=== PATIENT | male | born 1955 | race Caucasian/White ===

== ENCOUNTER 2016-07-06 12:25 | Emergency (ER) | payer BC, OTHER ==
--- NOTE | 2016-07-06 13:51 | ED ---
General Adult HPI - General Chief complaint: Arrhythmia/Palpitations Stated complaint: Irregular Heartbeat Time Seen by Provider: 07/06/16 13:15 Source: patient, RN notes reviewed Mode of arrival: wheelchair Limitations: no limitations - History of Present Illness Initial comments: Patient is a pleasant 60-year-old male presenting to the emergency Department with palpitations. Onset was around noon. Symptoms have been intermittent but overall improved. No history of similar symptoms previously. Patient feels like his heart is fluttering at times. Patient states there may be some minimal associated dyspnea. No pain. No nausea or diaphoresis. - Related Data Home Medications Medication Instructions Recorded Confirmed Clopidogrel [Plavix] 75 mg PO DAILY 06/16/15 07/06/16 Allopurinol [Zyloprim] 100 mg PO DAILY 07/28/15 07/06/16 Acetaminophen Tab [Tylenol Tab] 650 mg PO Q4H PRN 07/06/16 07/06/16 Aspirin 81 - 162 mg PO DAILY 07/06/16 07/06/16 Ezetimibe [Zetia] 10 mg PO HS 07/06/16 07/06/16 Famotidine [Pepcid] 20 mg PO DAILY PRN 07/06/16 07/06/16 Ferrous Sulfate [Feosol] 325 mg PO DAILY 07/06/16 07/06/16 Lisinopril [Zestril] 5 mg PO DAILY 07/06/16 07/06/16 valACYclovir [Valtrex] 500 mg PO BID 07/06/16 07/06/16 Previous Rx's Medication Instructions Recorded Nitroglycerin Sl Tabs [Nitrostat] 0.4 mg SUBLINGUAL Q5M PRN #25 tab 08/02/15 Metoprolol Tartrate [Lopressor] 25 mg PO BID #60 tab 01/20/16 Rosuvastatin Calcium [Crestor] 40 mg PO DAILY #30 tab 01/20/16 Allergies Allergy/AdvReac Type Severity Reaction Status Date / Time codeine Allergy makes Verified 07/06/16 13:35 headache worse egg yolk Allergy stomach Verified 07/06/16 13:35 ache atorvastatin calcium AdvReac Abdominal Verified 07/06/16 13:35 [From Lipitor] Pain PAIN MED (UNKNOWN) Allergy Unknown Uncoded 07/06/16 13:36 Review of Systems ROS Statement: Those systems with pertinent positive or pertinent negative responses have been documented in the HPI. ROS Other: All systems not noted in ROS Statement are negative. Constitutional: Denies: fever Eyes: Denies: eye pain ENT: Denies: ear pain Respiratory: Denies: cough Cardiovascular: Reports: palpitations. Denies: chest pain Endocrine: Denies: fatigue Gastrointestinal: Denies: abdominal pain Genitourinary: Denies: dysuria Musculoskeletal: Denies: back pain Skin: Denies: rash Neurological: Denies: weakness Past Medical History Past Medical History: Asthma, Coronary Artery Disease (CAD), GERD/Reflux, Hyperlipidemia, Hypertension, Myocardial Infarction ([place]), Osteoarthritis (OA) Additional Past Medical History / Comment(s): inpt [facility] "coded" during bowel prep for colonoscopy 06/2015, anemia, hiatal hernia, occ irregular heartbeat, gout, "low sodium", Last Myocardial Infarction Date:: 2015 History of Any Multi-Drug Resistant Organisms: None Reported Past Surgical History: Adenoidectomy, Appendectomy, Cholecystectomy, Coronary Bypass/CABG, Heart Catheterization With Stent, Tonsillectomy Additional Past Surgical History / Comment(s): total 4 stents, CABG 1994, surgery on rt eye(hit in eyeball with frisbe), Endo capsule, EGD, Colonoscopy Past Anesthesia/Blood Transfusion Reactions: Previous Problems w/ Anesthesia, Blood Transfusion Reaction, Motion Sickness Additional Past Anesthesia/Blood Transfusion Reaction / Comment(s): Hallucinations with last anesthesia, "felt funny' when getting last transfusion - could not be more specific Date of Last Stent Placement:: 2015 Past Psychological History: Anxiety Additional Psychological History / Comment(s): pt is independant,lives alone. works as cashier general/deputy city clerk at [employer]. Smoking Status: Former smoker Past Alcohol Use History: Rare Additional Past Alcohol Use History / Comment(s): QUIT 1997 HAD BEEN UP TO 2.5 PPD, started 1972-smoked for 25 yrs Past Drug Use History: None Reported - Past Family History Mother Family Medical History: Coronary Artery Disease (CAD), Hypertension Father Family Medical History: CVA/TIA Brother(s) Family Medical History: No Reported History Sister(s) Family Medical History: Cancer, Thyroid Disorder Additional Family Medical History / Comment(s): THYROID CANCER Son(s) Family Medical History: Cancer Daughter(s) Family Medical History: No Reported History General Exam Limitations: no limitations General appearance: alert, in no apparent distress Head exam: Present: atraumatic Eye exam: Present: normal appearance, PERRL ENT exam: Present: normal oropharynx Neck exam: Present: normal inspection Respiratory exam: Present: normal lung sounds bilaterally. Absent: chest wall tenderness Cardiovascular Exam: Present: regular rate, normal rhythm Expanded Peripheral pulses: 2+: Radial (R), Radial (L), Posterior Tibialis (R), Posterior Tibialis (L) GI/Abdominal exam: Present: soft. Absent: tenderness Extremities exam: Present: normal inspection Neurological exam: Present: alert Psychiatric exam: Present: normal affect, normal mood Skin exam: Absent: rash Course Vital Signs 07/06/16 07/06/16 07/06/16 12:28 12:38 15:00 Temperature 97.5 F L Pulse Rate 48 L 81 Pulse Rate [ 80 Clinical Review Specialist ] Respiratory 18 15 Rate Blood Pressure 190/84 150/84 O2 Sat by Pulse 99 96 Oximetry - Reevaluation(s) Reevaluation #1: 07/06/16 13:49 While auscultating heart sounds and looking at the monitor PVC was noted twice. At both times patient states this was associated with the symptoms. EKG Findings - EKG Comments: EKG Findings:: Normal sinus rhythm 78. Normal intervals. Left axis. Inferior Q waves. No acute ST change. Medical Decision Making - Medical Decision Making Patient reexamined and near symptom-free. Patient updated on results and need for follow-up. - Lab Data Result diagrams: 07/06/16 12:55 07/06/16 12:55 Lab Results 07/06/16 07/06/16 07/06/16 Range/Units 12:55 12:55 12:55 WBC 8.7 (3.8-10.6) k/uL RBC 5.09 (4.30-5.90) m/uL Hgb 15.6 (13.0-17.5) gm/dL Hct 47.8 (39.0-53.0) % MCV 94.0 (80.0-100.0) fL MCH 30.6 (25.0-35.0) pg MCHC 32.5 (31.0-37.0) g/dL RDW 13.3 (11.5-15.5) % Plt Count 232 (150-450) k/uL Neutrophils % 75 % Lymphocytes % 16 % Monocytes % 5 % Eosinophils % 1 % Basophils % 0 % Neutrophils # 6.6 (1.3-7.7) k/uL Lymphocytes # 1.4 (1.0-4.8) k/uL Monocytes # 0.4 (0-1.0) k/uL Eosinophils # 0.1 (0-0.7) k/uL Basophils # 0.0 (0-0.2) k/uL PT (9.0-12.0) sec INR (<1.1) APTT (22.0-30.0) sec Sodium 141 (137-145) mmol/L Potassium 4.2 (3.5-5.1) mmol/L Chloride 106 (98-107) mmol/L Carbon Dioxide 20 L (22-30) mmol/L Anion Gap 15 mmol/L BUN 10 (9-20) mg/dL Creatinine 0.76 (0.66-1.25) mg/dL Est GFR (MDRD) Af Amer >60 (>60 ml/min/1.73 sqM) Est GFR (MDRD) Non-Af >60 (>60 ml/min/1.73 sqM) Glucose 92 (74-99) mg/dL Calcium 9.3 (8.4-10.2) mg/dL Magnesium 1.7 (1.6-2.3) mg/dL Total Bilirubin 1.0 (0.2-1.3) mg/dL AST 41 (17-59) U/L ALT 41 (21-72) U/L Alkaline Phosphatase 49 (38-126) U/L Total Creatine Kinase 87 (55-170) U/L CK-MB (CK-2) 2.4 (0.0-2.4) ng/mL CK-MB (CK-2) Rel Index 2.8 Troponin I 0.016 (0.000-0.034) ng/mL Total Protein 7.5 (6.3-8.2) g/dL Albumin 4.4 (3.5-5.0) g/dL TSH 1.600 (0.465-4.680) mIU/L Free T4 1.05 (0.78-2.19) ng/dL 07/06/16 Range/Units 12:55 WBC (3.8-10.6) k/uL RBC (4.30-5.90) m/uL Hgb (13.0-17.5) gm/dL Hct (39.0-53.0) % MCV (80.0-100.0) fL MCH (25.0-35.0) pg MCHC (31.0-37.0) g/dL RDW (11.5-15.5) % Plt Count (150-450) k/uL Neutrophils % % Lymphocytes % % Monocytes % % Eosinophils % % Basophils % % Neutrophils # (1.3-7.7) k/uL Lymphocytes # (1.0-4.8) k/uL Monocytes # (0-1.0) k/uL Eosinophils # (0-0.7) k/uL Basophils # (0-0.2) k/uL PT 13.6 H (9.0-12.0) sec INR 1.4 (<1.1) APTT 29.0 (22.0-30.0) sec Sodium (137-145) mmol/L Potassium (3.5-5.1) mmol/L Chloride (98-107) mmol/L Carbon Dioxide (22-30) mmol/L Anion Gap mmol/L BUN (9-20) mg/dL Creatinine (0.66-1.25) mg/dL Est GFR (MDRD) Af Amer (>60 ml/min/1.73 sqM) Est GFR (MDRD) Non-Af (>60 ml/min/1.73 sqM) Glucose (74-99) mg/dL Calcium (8.4-10.2) mg/dL Magnesium (1.6-2.3) mg/dL Total Bilirubin (0.2-1.3) mg/dL AST (17-59) U/L ALT (21-72) U/L Alkaline Phosphatase (38-126) U/L Total Creatine Kinase (55-170) U/L CK-MB (CK-2) (0.0-2.4) ng/mL CK-MB (CK-2) Rel Index Troponin I (0.000-0.034) ng/mL Total Protein (6.3-8.2) g/dL Albumin (3.5-5.0) g/dL TSH (0.465-4.680) mIU/L Free T4 (0.78-2.19) ng/dL - Radiology Data Radiology results: image reviewed (Chest x-ray shows no acute process) Disposition Clinical Impression: Ventricular premature beats Disposition: HOME SELF-CARE Condition: Stable Instructions: Palpitations (ED), Premature Ventricular Contractions (ED) Additional Instructions: Please follow-up with Dr. Carvalho in the beginning of the week. Return for increased heart rate, increased palpitations, chest pain or difficulty in breathing, worsening symptoms or other concerns. Referrals: Alex Borden Jr, DO [Primary Care Provider] - 1-2 days
[2016-07-06 14:05] LABS: Basophils % (A) 0 %; CH 31.2; CHCM 33.3; Eosinophils # (A) 0.1 k/uL (0-0.7); Eosinophils % (A) 1 %; HCT 47.8 % (39.0-53.0); HDW 2.63; HGB 15.6 gm/dL (13.0-17.5); Luc # (Auto) 0.17; Luc % (Auto) 2; Lymphocytes # (A) 1.4 k/uL (1.0-4.8); Lymphocytes % (A) 16 %; MCH 30.6 pg (25.0-35.0); MCHC 32.5 g/dL (31.0-37.0); Mean Platelet Volume 7.6; Monocytes # (A) 0.4 k/uL (0-1.0); Monocytes % (A) 5 %; Neutrophils # (A) 6.6 k/uL (1.3-7.7); Neutrophils % (A) 75 %; RBC 5.09 m/uL (4.30-5.90); RDW 13.3 % (11.5-15.5); WBC 8.7 k/uL (3.8-10.6); WBC (Perox) 8.71
--- NOTE | 2016-07-06 14:20 | XR ---
EXAMINATION TYPE: XR chest 2V DATE OF EXAM: 07/06/2016 2:07 PM COMPARISON: January 18, 2016 HISTORY: Shortness of breath TECHNIQUE: Frontal and lateral views of the chest are obtained. FINDINGS: Scattered senescent parenchymal changes noted. Hyperinflation compatible with COPD. No evidence for infiltrate. No evidence for atelectasis. Heart size is stable. Mediastinal structures are stable and grossly unremarkable. No evidence for hilar prominence. Degenerative changes dorsal spine. IMPRESSION: 1. No evidence for acute pulmonary disease.
[2016-07-06 14:26] LABS: INR 1.4 (<1.1); Prothrombin Time 13.6 sec (9.0-12.0)
[2016-07-06 14:28] LABS: ALT 41 U/L (21-72); AST 41 U/L (17-59); Alkaline Phosphatase 49 U/L (38-126); Anion Gap 15 mmol/L; Blood Urea Nitrogen 10 mg/dL (9-20); Calcium 9.3 mg/dL (8.4-10.2); Carbon Dioxide 20 mmol/L (22-30); Chloride 106 mmol/L (98-107); Glucose 92 mg/dL (74-99); Magnesium 1.7 mg/dL (1.6-2.3); Non-African American GFR(MDRD) >60 (>60 ml/min/1.73 sqM); Potassium 4.2 mmol/L (3.5-5.1); Sodium 141 mmol/L (137-145); Total Protein 7.5 g/dL (6.3-8.2)
[2016-07-06 14:42] LABS: Creatine Kinase MB 2.4 ng/mL (0.0-2.4); Troponin I 0.016 ng/mL (0.000-0.034)
[2016-07-06] MEDS ORDERED: ACETAMINOPHEN TAB 500 MG TAB PO STA (15:04)
[2016-07-06 15:53] VITALS: BP 162/87; PULSE 67; RESP 14; TEMP 98.3
== END 2016-07-06 16:08 | disposition home or self-care (01) ==
LOC: EC 12:25
DX: I49.3 Ventricular premature depolarization (principal); I25.10 Atherosclerotic heart disease of native coronary artery without angina pectoris; I10 Essential (primary) hypertension; I25.2 Old myocardial infarction; E78.5 Hyperlipidemia, unspecified; K21.9 Gastro-esophageal reflux disease without esophagitis; Z95.1 Presence of aortocoronary bypass graft; Z95.5 Presence of coronary angioplasty implant and graft; Z88.5 Allergy status to narcotic agent; Z88.8 Allergy status to other drugs, medicaments and biological substances; Z79.82 Long term (current) use of aspirin; Z79.02 Long term (current) use of antithrombotics/antiplatelets; Z79.899 Other long term (current) drug therapy; Z87.891 Personal history of nicotine dependence
CPT/HCPCS: 36415; 71020; 80053; 82550; 82553; 83735; 84439; 84443; 84481; 84484; 85025; 85610; 85730; 93005; 99285

== ENCOUNTER → 2016-07-20 | Outpatient (CLI) | payer BC ==
--- NOTE | 2016-07-21 08:01 | CT ---
EXAMINATION TYPE: CT abdomen pelvis wo con DATE OF EXAM: 07/20/2016 8:08 PM COMPARISON: NONE HISTORY: Pain and swelling near umbilicus. Previous umbilical hernia repair. CT DLP: 1014.00 mGycm FINDINGS: LUNG BASES: No evidence for nodule. No evidence for infiltrate. LIVER/GB: Cholecystectomy clips noted. No space-occupying hepatic lesion. PANCREAS: No pancreatic mass identified. No inflammatory process seen. SPLEEN: No evidence for splenomegaly. No intrasplenic lesions seen. ADRENALS: No adrenal nodules identified. No evidence for thickening. KIDNEYS: No evidence for renal mass. No nephrolithiasis. No hydronephrosis. BOWEL: Appendix has a normal appearance. No evidence of bowel obstruction. No inflammatory process. S igmoid diverticulosis without diverticulitis. Lymph nodes: No evidence for adenopathy greater than 1 cm. Abdominal aorta: Atheromatous changes seen. Mild intra-abdominal aortic aneurysm measuring 3.1 cm. Ec addy of the iliac arteries. Genital organs: No significant abnormality. Other: Fat-containing ventral hernia to the right of midline approximately 11.5 cm proximal to the um bilicus. Hernia measures 3.1 x 1.5 cm. IMPRESSION: 1. FAT-CONTAINING VENTRAL HERNIA. 2. SIGMOID DIVERTICULOSIS WITHOUT DIVERTICULITIS. 3. MILD INFRARENAL ABDOMINAL AORTIC ANEURYSM.
== END | disposition home or self-care (01) ==
LOC: RADCTMAIN 19:25
PROVIDERS: ATTEND Surgery
DX: K43.9 Ventral hernia without obstruction or gangrene (principal); K57.30 Diverticulosis of large intestine without perforation or abscess without bleeding; I71.4 Abdominal aortic aneurysm, without rupture
CPT/HCPCS: 74176

== ENCOUNTER → 2017-03-28 | Outpatient (CLI) | payer BC ==
[2017-03-28 11:57] LABS: CHCM 33.6; HCT 52.1 % (39.0-53.0); HDW 2.69; HGB 16.6 gm/dL (13.0-17.5); MCH 31.5 pg (25.0-35.0); MCHC 31.9 g/dL (31.0-37.0); MCV 98.7 fL (80.0-100.0); Mean Platelet Volume 8.1; RBC 5.28 m/uL (4.30-5.90); RDW 13.9 % (11.5-15.5); WBC 10.5 k/uL (3.8-10.6)
== END | disposition home or self-care (01) ==
LOC: LABPAT 11:02
PROVIDERS: ATTEND Surgery
DX: Z01.812 Encounter for preprocedural laboratory examination (principal)
CPT/HCPCS: 36415; 85027; 86850; 86900; 86901

== ENCOUNTER 2017-03-30 20:39 | Inpatient (IN) | payer BC ==
[~2017-03-30 20:39] MED LIST: LACTATED RINGERS 1,000 ML IV ONE; SODIUM CHLORIDE 0.9% 500 ML IV ONE
[2017-03-30] MEDS ORDERED: ONDANSETRON 4 MG/2 ML VIAL IVP STA (21:47)
[2017-03-30] MEDS ORDERED: HYDROmorphone 1 MG/ML 1 ML SYRINGE IVP STA (21:47)
[2017-03-30] MEDS ORDERED: SODIUM CHLORIDE 0.9% 500 ML IV STA (21:47)
[2017-03-30] MEDS ORDERED: RX INFO: IV CONTRAST WAS GIVEN 1 EACH MISC MISCELLANE PRN (21:57)
--- NOTE | 2017-03-30 21:57 | ED ---
General Adult HPI - General Chief complaint: Abdominal Pain Stated complaint: Vomiting/Hernia Time Seen by Provider: 03/30/17 21:00 Source: patient, RN notes reviewed Mode of arrival: ambulatory Limitations: no limitations - History of Present Illness Initial comments: This is a 61-year-old male presents emergency Department with a incisional hernia patient is supposed to have surgical repair on Saturday. Patient states Saturday he started having significant pain and was dry heaving all day however he felt fine Saturday again he was having significant pain and again today. Patient states he is too uncomfortable to remain at home so he came in to get some pain medication. Patient denies any vomiting right now but is nauseated. Patient denies any fever chills. Patient denies any back pain. Patient denies any dysuria hematuria urinary frequency. Patient denies any chest pain difficulty breathing or shortness of breath - Related Data Home Medications Medication Instructions Recorded Confirmed Allopurinol [Zyloprim] 100 mg PO DAILY 07/28/15 03/27/17 Ezetimibe [Zetia] 10 mg PO HS 07/06/16 03/27/17 Famotidine [Pepcid] 20 mg PO BID 07/06/16 03/27/17 Ferrous Sulfate [Feosol] 325 mg PO BID 07/06/16 03/27/17 Lisinopril [Zestril] 10 mg PO DAILY 07/06/16 03/27/17 Aspirin [Adult Low Dose Aspirin EC] 81 mg PO DAILY 03/27/17 03/27/17 Loratadine [Claritin] 10 mg PO DAILY PRN 03/27/17 03/27/17 Metoprolol Tartrate [Lopressor] 12.5 mg PO BID 03/27/17 03/27/17 Sennosides [Senna] 8.6 mg PO DAILY 03/27/17 03/27/17 Previous Rx's Medication Instructions Recorded Nitroglycerin Sl Tabs [Nitrostat] 0.4 mg SUBLINGUAL Q5M PRN #25 tab 08/02/15 Rosuvastatin Calcium [Crestor] 40 mg PO DAILY #30 tab 01/20/16 Allergies Allergy/AdvReac Type Severity Reaction Status Date / Time codeine Allergy makes Verified 03/30/17 20:54 headache worse egg yolk Allergy stomach Verified 03/30/17 20:54 ache atorvastatin calcium AdvReac Abdominal Verified 03/30/17 20:54 [From Lipitor] Pain Review of Systems ROS Statement: Those systems with pertinent positive or pertinent negative responses have been documented in the HPI. ROS Other: All systems not noted in ROS Statement are negative. Past Medical History Past Medical History: Coronary Artery Disease (CAD), GERD/Reflux, Hyperlipidemia , Hypertension, Myocardial Infarction ([place]), Osteoarthritis (OA) Additional Past Medical History / Comment(s): States "coded" during bowel prep for colonoscopy 06/2015, anemia, hiatal hernia, occ irregular heartbeat, gout, hx of low sodium., low iron (received iron transfusions), genital herpes., incisional hernia- states occasional vomiting. Last Myocardial Infarction Date:: 2015 History of Any Multi-Drug Resistant Organisms: None Reported Past Surgical History: Adenoidectomy, Appendectomy, Cholecystectomy, Coronary Bypass/CABG, Heart Catheterization With Stent, Tonsillectomy Additional Past Surgical History / Comment(s): total 4 stents, CABG 1994, surgery on rt eye(hit in eyeball with frisbe), Endo capsule, EGD, Colonoscopy Past Anesthesia/Blood Transfusion Reactions: Previous Problems w/ Anesthesia, Blood Transfusion Reaction, Motion Sickness Additional Past Anesthesia/Blood Transfusion Reaction / Comment(s): Hallucinations with last anesthesia, "felt funny' when getting last transfusion. Date of Last Stent Placement:: 2015 Past Psychological History: No Psychological Hx Reported Smoking Status: Former smoker Past Alcohol Use History: Rare Past Drug Use History: None Reported - Past Family History Mother Family Medical History: Coronary Artery Disease (CAD), Hypertension Father Family Medical History: CVA/TIA Brother(s) Family Medical History: No Reported History Sister(s) Family Medical History: Cancer, Thyroid Disorder Additional Family Medical History / Comment(s): THYROID CANCER Son(s) Family Medical History: Cancer Daughter(s) Family Medical History: No Reported History General Exam - General Exam Comments Initial Comments: GENERAL: Patient is well-developed and well-nourished. Patient is nontoxic and well- hydrated and is in distress. ENT: Neck is soft and supple. No significant lymphadenopathy is noted. Oropharynx is clear. Moist mucous membranes. Neck has full range of motion without eliciting any pain. EYES: The sclera were anicteric and conjunctiva were pink and moist. Extraocular movements were intact and pupils were equal round and reactive to light. Eyelids were unremarkable. PULMONARY: Unlabored respirations. Good breath sounds bilaterally. No audible rales rhonchi or wheezing was noted. CARDIOVASCULAR: There is a regular rate and rhythm without any murmurs gallops or rubs. ABDOMEN: Patient is a mass which appears to be a incisional hernia on the left side of the incision it is extremely tender to touch and it is nonreducible at this point SKIN: Skin is clear with no lesions or rashes and otherwise unremarkable. NEUROLOGIC: Patient is alert and oriented x3. Cranial nerves II through XII are grossly intact. Motor and sensory are also intact. Normal speech, volume and content. Symmetrical smile. MUSCULOSKELETAL: Normal extremities with adequate strength and full range of motion. No lower extremity swelling or edema. No calf tenderness. LYMPHATICS: No significant lymphadenopathy is noted PSYCHIATRIC: Normal psychiatric evaluation. Limitations: no limitations Course Vital Signs 03/30/17 03/30/17 20:50 22:51 Temperature 99.2 F Pulse Rate 68 63 Respiratory 16 18 Rate Blood Pressure 137/97 140/66 O2 Sat by Pulse 98 95 Oximetry Medical Decision Making - Medical Decision Making I spoke with Dr. Kincaid and she wanted to do the surgery this evening because there is no OR rooms in the morning. Dr. Kincaid took the patient to the OR this evening - Lab Data Result diagrams: 03/30/17 22:11 03/30/17 22:11 Lab Results 03/30/17 03/30/17 03/30/17 Range/Units 22:11 22:11 22:13 WBC 11.1 H (3.8-10.6) k/uL RBC 5.35 (4.30-5.90) m/uL Hgb 16.9 (13.0-17.5) gm/dL Hct 51.2 (39.0-53.0) % MCV 95.8 (80.0-100.0) fL MCH 31.6 (25.0-35.0) pg MCHC 33.0 (31.0-37.0) g/dL RDW 12.7 (11.5-15.5) % Plt Count 232 (150-450) k/uL Neutrophils % 79 % Lymphocytes % 12 % Monocytes % 7 % Eosinophils % 1 % Basophils % 0 % Neutrophils # 8.7 H (1.3-7.7) k/uL Lymphocytes # 1.4 (1.0-4.8) k/uL Monocytes # 0.7 (0-1.0) k/uL Eosinophils # 0.1 (0-0.7) k/uL Basophils # 0.0 (0-0.2) k/uL Sodium 140 (137-145) mmol/L Potassium 4.3 (3.5-5.1) mmol/L Chloride 106 (98-107) mmol/L Carbon Dioxide 24 (22-30) mmol/L Anion Gap 10 mmol/L BUN 10 (9-20) mg/dL Creatinine 0.80 (0.66-1.25) mg/dL Est GFR (MDRD) Af Amer >60 (>60 ml/min/1.73 sqM) Est GFR (MDRD) Non-Af >60 (>60 ml/min/1.73 sqM) Glucose 116 H (74-99) mg/dL Plasma Lactic Acid Geo 1.1 (0.7-2.0) mmol/L Calcium 9.4 (8.4-10.2) mg/dL Total Bilirubin 1.1 (0.2-1.3) mg/dL AST 32 (17-59) U/L ALT 49 (21-72) U/L Alkaline Phosphatase 62 (38-126) U/L Total Protein 6.8 (6.3-8.2) g/dL Albumin 4.0 (3.5-5.0) g/dL Amylase 32 (30-110) U/L Lipase 67 (23-300) U/L Urine Color Urine Appearance (Clear) Urine pH (5.0-8.0) Ur Specific [place] (1.001-1.035) Urine Protein (Negative) Urine Glucose (UA) (Negative) Urine Ketones (Negative) Urine Blood (Negative) Urine Nitrite (Negative) Urine Bilirubin (Negative) Urine Urobilinogen (<2.0) mg/dL Ur Leukocyte Esterase (Negative) 03/30/17 Range/Units 22:49 WBC (3.8-10.6) k/uL RBC (4.30-5.90) m/uL Hgb (13.0-17.5) gm/dL Hct (39.0-53.0) % MCV (80.0-100.0) fL MCH (25.0-35.0) pg MCHC (31.0-37.0) g/dL RDW (11.5-15.5) % Plt Count (150-450) k/uL Neutrophils % % Lymphocytes % % Monocytes % % Eosinophils % % Basophils % % Neutrophils # (1.3-7.7) k/uL Lymphocytes # (1.0-4.8) k/uL Monocytes # (0-1.0) k/uL Eosinophils # (0-0.7) k/uL Basophils # (0-0.2) k/uL Sodium (137-145) mmol/L Potassium (3.5-5.1) mmol/L Chloride (98-107) mmol/L Carbon Dioxide (22-30) mmol/L Anion Gap mmol/L BUN (9-20) mg/dL Creatinine (0.66-1.25) mg/dL Est GFR (MDRD) Af Amer (>60 ml/min/1.73 sqM) Est GFR (MDRD) Non-Af (>60 ml/min/1.73 sqM) Glucose (74-99) mg/dL Plasma Lactic Acid Geo (0.7-2.0) mmol/L Calcium (8.4-10.2) mg/dL Total Bilirubin (0.2-1.3) mg/dL AST (17-59) U/L ALT (21-72) U/L Alkaline Phosphatase (38-126) U/L Total Protein (6.3-8.2) g/dL Albumin (3.5-5.0) g/dL Amylase (30-110) U/L Lipase (23-300) U/L Urine Color Yellow Urine Appearance Clear (Clear) Urine pH 6.5 (5.0-8.0) Ur Specific [place] 1.021 (1.001-1.035) Urine Protein Trace H (Negative) Urine Glucose (UA) Negative (Negative) Urine Ketones Negative (Negative) Urine Blood Negative (Negative) Urine Nitrite Negative (Negative) Urine Bilirubin 1+ H (Negative) Urine Urobilinogen >12.0 (<2.0) mg/dL Ur Leukocyte Esterase Negative (Negative) Disposition Clinical Impression: Incarcerated incisional hernia Disposition: ADMITTED IP TO THIS [facility] Referrals: Alex Borden Jr, DO [Primary Care Provider] - 1-2 days Time of Disposition: 22:59
[2017-03-30 22:22] LABS: Basophils % (A) 0 %; CH 32.4; Eosinophils # (A) 0.1 k/uL (0-0.7); Eosinophils % (A) 1 %; HCT 51.2 % (39.0-53.0); HDW 2.79; HGB 16.9 gm/dL (13.0-17.5); Luc # (Auto) 0.15; Luc % (Auto) 1; Lymphocytes # (A) 1.4 k/uL (1.0-4.8); Lymphocytes % (A) 12 %; MCH 31.6 pg (25.0-35.0); MCV 95.8 fL (80.0-100.0); Mean Platelet Volume 7.5; Monocytes # (A) 0.7 k/uL (0-1.0); Monocytes % (A) 7 %; Neutrophils # (A) 8.7 k/uL (1.3-7.7); Neutrophils % (A) 79 %; RBC 5.35 m/uL (4.30-5.90); RDW 12.7 % (11.5-15.5); WBC 11.1 k/uL (3.8-10.6); WBC (Perox) 10.83
[2017-03-30 22:30] LABS: ALT 49 U/L (21-72); AST 32 U/L (17-59); Alkaline Phosphatase 62 U/L (38-126); Amylase 32 U/L (30-110); Anion Gap 10 mmol/L; Blood Urea Nitrogen 10 mg/dL (9-20); Calcium 9.4 mg/dL (8.4-10.2); Carbon Dioxide 24 mmol/L (22-30); Chloride 106 mmol/L (98-107); Glucose 116 mg/dL (74-99); Non-African American GFR(MDRD) >60 (>60 ml/min/1.73 sqM); Potassium 4.3 mmol/L (3.5-5.1); Sodium 140 mmol/L (137-145); Total Bilirubin 1.1 mg/dL (0.2-1.3); Total Protein 6.8 g/dL (6.3-8.2)
[2017-03-30 22:56] LABS: Appearance,Urine Clear (Clear); Bilirubin,Urine 1+ (Negative); Glucose,Urine (UA) Negative (Negative); Ketones,Urine Negative (Negative); Leukocyte Esterase,Urine Negative (Negative); Nitrite,Urine Negative (Negative); PH, Urine 6.5 (5.0-8.0); Protein,Urine Trace (Negative); Specific Gravity,Urine 1.021 (1.001-1.035); UA Billing (MACRO vs. MICRO) CHEM; Urobilinogen,Urine >12.0 mg/dL (<2.0)
[2017-03-30] MEDS ORDERED: ceFAZolin 2 GM in SODIUM CHLORIDE 0.9% 100 ML IVPB ONE (23:06)
--- NOTE | 2017-03-30 23:06 | P.GSHP ---
History of Present Illness H&P Date: 03/30/17 Chief Complaint: Incarcerated ventral hernia 61 yrs old male with recurrent incisional hernia scheduled for elective hernia repair on Saturday presents with worsening abdominal pain, nausea and vomiting. He felt abdominal pain along anterior mid abdomen startingon Saturday ,felt better and came today to ER with worsening pain.He has coronary artery disease S /P CABG and several cardiac stents with most recent stent a year ago. He had seen Dr. Krishna last week and plavix was stopped but still takes baby aspirin. He presented in 2015 with inacrcerated obstructed hernia requiring small bowel resection with anastomosis and primary hernia repair without mesh. He developed acute DC in immediate post op period and had cardiac cathetrization and stent placement. His comorbid conditions include past history of heavy smoking, CAD, hypertension. - Review of Systems Comment: All negative except [employer] [facility] [employer] [place] Past Medical History Past Medical History: Coronary Artery Disease (CAD), GERD/Reflux, Hyperlipidemia , Hypertension, Myocardial Infarction (DC), Osteoarthritis (OA) Additional Past Medical History / Comment(s): States "coded" during bowel prep for colonoscopy 06/2015, anemia, hiatal hernia, occ irregular heartbeat, gout, hx of low sodium., low iron (received iron transfusions), genital herpes., incisional hernia- states occasional vomiting. Last Myocardial Infarction Date:: 2015 History of Any Multi-Drug Resistant Organisms: None Reported Past Surgical History: Adenoidectomy, Appendectomy, Cholecystectomy, Coronary Bypass/CABG, Heart Catheterization With Stent, Tonsillectomy Additional Past Surgical History / Comment(s): total 4 stents, CABG 1994, surgery on rt eye(hit in eyeball with frisbe), Endo capsule, EGD, Colonoscopy Past Anesthesia/Blood Transfusion Reactions: Previous Problems w/ Anesthesia, Blood Transfusion Reaction, Motion Sickness Additional Past Anesthesia/Blood Transfusion Reaction / Comment(s): Hallucinations with last anesthesia, "felt funny' when getting last transfusion. Date of Last Stent Placement:: 2015 Past Psychological History: No Psychological Hx Reported Smoking Status: Former smoker Past Alcohol Use History: Rare Past Drug Use History: None Reported - Past Family History Mother Family Medical History: Coronary Artery Disease (CAD), Hypertension Father Family Medical History: CVA/TIA Brother(s) Family Medical History: No Reported History Sister(s) Family Medical History: Cancer, Thyroid Disorder Additional Family Medical History / Comment(s): THYROID CANCER Son(s) Family Medical History: Cancer Daughter(s) Family Medical History: No Reported History Medications and Allergies Home Medications Medication Instructions Recorded Confirmed Type Allopurinol [Zyloprim] 100 mg PO DAILY 07/28/15 03/27/17 History Nitroglycerin Sl Tabs [Nitrostat] 0.4 mg SUBLINGUAL Q5M PRN #25 tab 08/02/1505/03 Rx Rosuvastatin Calcium [Crestor] 40 mg PO DAILY #30 tab 01/20/16 03/27/17 Rx Ezetimibe [Zetia] 10 mg PO HS 07/06/16 03/27/17 History Famotidine [Pepcid] 20 mg PO BID 07/06/16 03/27/17 History Ferrous Sulfate [Feosol] 325 mg PO BID 07/06/16 03/27/17 History Lisinopril [Zestril] 10 mg PO DAILY 07/06/16 03/27/17 History Aspirin [Adult Low Dose Aspirin EC] 81 mg PO DAILY 03/27/17 03/27/17 History Loratadine [Claritin] 10 mg PO DAILY PRN 03/27/17 03/27/17 History Metoprolol Tartrate [Lopressor] 12.5 mg PO BID 03/27/17 03/27/17 History Sennosides [Senna] 8.6 mg PO DAILY 03/27/17 03/27/17 History Allergies Allergy/AdvReac Type Severity Reaction Status Date / Time codeine Allergy makes Verified 03/30/17 20:54 headache worse egg yolk Allergy stomach Verified 03/30/17 20:54 ache atorvastatin calcium AdvReac Abdominal Verified 03/30/17 20:54 [From Lipitor] Pain Surgical - Exam Vital Signs Temp Pulse Resp BP Pulse Ox 99.2 F 68 16 137/97 98 03/30/17 20:50 03/30/17 20:50 03/30/17 20:50 03/30/17 20:50 03/30/17 20:50 - General well developed, well nourished, moderate distress - Eyes PERRL - Neck no masses, no lymphadectomy, no venous distension - Respiratory normal expansion, clear to auscultation - Cardiovascular Rhythm: regular - Abdomen Irreducible incarcerated incisional hernia. No overlying skin changes . No diffuse peritonitis. Localized tenderness on palpation - Integumentary no rash - Neurologic normal coordination - Musculoskeletal normal gait, normal posture - Psychiatric oriented to time, oriented to person, oriented to place, speech is normal, memory intact Results - Labs 03/30/17 22:11 03/30/17 22:11 Abnormal Lab Results - Last 24 Hours (Table) 03/30/17 03/30/17 03/30/17 Range/Units 22:11 22:11 22:49 WBC 11.1 H (3.8-10.6) k/uL Neutrophils # 8.7 H (1.3-7.7) k/uL Glucose 116 H (74-99) mg/dL Urine Protein Trace H (Negative) Urine Bilirubin 1+ H (Negative) Diabetes panel 03/30/17 Range/Units 22:11 Sodium 140 (137-145) mmol/L Potassium 4.3 (3.5-5.1) mmol/L Chloride 106 (98-107) mmol/L Carbon Dioxide 24 (22-30) mmol/L BUN 10 (9-20) mg/dL Creatinine 0.80 (0.66-1.25) mg/dL Glucose 116 H (74-99) mg/dL Calcium 9.4 (8.4-10.2) mg/dL AST 32 (17-59) U/L ALT 49 (21-72) U/L Alkaline Phosphatase 62 (38-126) U/L Total Protein 6.8 (6.3-8.2) g/dL Albumin 4.0 (3.5-5.0) g/dL Calcium panel 03/30/17 Range/Units 22:11 Calcium 9.4 (8.4-10.2) mg/dL Albumin 4.0 (3.5-5.0) g/dL Pituitary panel 03/30/17 Range/Units 22:11 Sodium 140 (137-145) mmol/L Potassium 4.3 (3.5-5.1) mmol/L Chloride 106 (98-107) mmol/L Carbon Dioxide 24 (22-30) mmol/L BUN 10 (9-20) mg/dL Creatinine 0.80 (0.66-1.25) mg/dL Glucose 116 H (74-99) mg/dL Calcium 9.4 (8.4-10.2) mg/dL Adrenal panel 03/30/17 Range/Units 22:11 Sodium 140 (137-145) mmol/L Potassium 4.3 (3.5-5.1) mmol/L Chloride 106 (98-107) mmol/L Carbon Dioxide 24 (22-30) mmol/L BUN 10 (9-20) mg/dL Creatinine 0.80 (0.66-1.25) mg/dL Glucose 116 H (74-99) mg/dL Calcium 9.4 (8.4-10.2) mg/dL Total Bilirubin 1.1 (0.2-1.3) mg/dL AST 32 (17-59) U/L ALT 49 (21-72) U/L Alkaline Phosphatase 62 (38-126) U/L Total Protein 6.8 (6.3-8.2) g/dL Albumin 4.0 (3.5-5.0) g/dL Assessment and Plan (1) Incarcerated incisional hernia Status: Acute (2) CAD (coronary artery disease) Status: Acute (3) HTN (hypertension) Status: Acute (4) Hx of CABG Status: Acute Plan: 1. Incarcerated recurrent incisional hernia 2. Diagnostic laparoscopy, lap ventral hernia repair possible open with mesh possible bowel resection possible open surgery . No mesh if bowel resection needs to be performed. Informed consent obtained after discussing the risks, benefits and potential complications including bleeding, infection, bowel resection, possibility of bowel resection and open surgery. He may also have perioperative adverse cardiac event, prolonged ileus . 3. Preop Abx- Ancef 2 gm IVPBx1 4. Bilateral SCDs 5. Chen catheter 6. Protonix 40 mg IVPBX1 7. Consult PCP for medical management 8. Post op admission with telemetry monitoring 9. Consult cardiology Dr. Krishna 10. Patient examined in preop area. Plan discussed with him and his mother. All questions answered. Time with Patient: Greater than 30
[2017-03-30] MEDS ORDERED: LACTATED RINGERS 1,000 ML IV ONE (23:08)
[2017-03-30] MEDS: ACETAMINOPHEN IV (For NPO) 1,000 MG in EMPTY BAG 1 BAG IVPB SCH (23:56)
[2017-03-31] MEDS ORDERED: PROPOFOL 10 MG/ML 20 ML VIAL IV ONE (00:13)
[2017-03-31] MEDS ORDERED: LIDOCAINE 1% INJ 10MG/ML (20 ML MDV) ONE (00:13)
[2017-03-31] MEDS ORDERED: MIDAZOLAM 2 MG/2 ML VIAL ONE (00:13)
[2017-03-31] MEDS ORDERED: ePHEDrine SULFATE/0.9% NACL/PF 50 MG/5 ML SYRINGE IV ONE (00:13)
[2017-03-31] MEDS ORDERED: NEOSTIGMINE 1 MG/ML 10 ML VIAL ONE (00:13)
[2017-03-31] MEDS ORDERED: METOPROLOL TARTRATE 5 MG/5 ML VIAL IVP ONE (00:13)
[2017-03-31] MEDS ORDERED: SUCCINYLCHOLINE CHLORIDE 100 MG/5 ML SYR IV ONE (00:13)
[2017-03-31] MEDS ORDERED: ONDANSETRON 4 MG/2 ML VIAL ONE (00:13)
[2017-03-31] MEDS ORDERED: ROCURONIUM BROMIDE 10 MG/ML 10 ML VIAL IV ONE (00:13)
[2017-03-31] MEDS ORDERED: fentaNYL (PF) 50 MCG/ML 2 ML AMP ONE (00:13)
[2017-03-31] MEDS ORDERED: GLYCOPYRROLATE 0.2 MG/ML 2 ML VIAL ONE (00:13)
--- NOTE | 2017-03-31 00:27 | P.OP ---
Date of Procedure: 03/31/17 Preoperative Diagnosis: Incarcerated recurrent incisional hernia Nausea and vomiting CAD s/p CABG and multiple cardiac stents Hypertension Obesity BMI 31.3 H/o cigarette smoking Postoperative Diagnosis: Same Procedure(s) Performed: Diagnostic laparoscopy, open incarcerated recurrent ventral hernia repair with component separation and repair with mesh in retrorectus space Implants: Ventralight ST mesh Anesthesia: AVINASH Surgeon: Katherine Kincaid Pathology: none sent Condition: stable Disposition: PACU Indications for Procedure: 61 yrs old male with recurrent incisional hernia scheduled for elective hernia repair on Saturday presents with worsening abdominal pain, nausea and vomiting. He felt abdominal pain along anterior mid abdomen startingon Saturday ,felt better and came today to ER with worsening pain.He has coronary artery disease S /P CABG and several cardiac stents with most recent stent a year ago. He had seen Dr. Krishna last week and plavix was stopped but still takes baby aspirin. He presented in 2015 with inacrcerated obstructed hernia requiring small bowel resection with anastomosis and primary hernia repair without mesh. He developed acute [place] in immediate post op period and had cardiac cathetrization and stent placement. His comorbid conditions include past history of heavy smoking, CAD, hypertension. Operative Findings: Cameroonian cheese type hernia defect which was wide 10cm x10 cm . Incarcerated omentum and small bowel which was reduced . Open ventral hewrnia repair with Ventralight ST mesh in retrorectus space Description of Procedure: The patient was brought to the operating room and placed in supine position with both arms out. General anesthesia with endotracheal intubation was performed as per anesthesia team. Chlorhexidine was used to prep the abdomen followed by application of sterile drapes. A timeout was performed to verify correct patient and correct procedure. Patient was confirmed to receive perioperative IV antibiotics , heparin 5000 units subcutaneous injection and bilateral SCDs were placed. A Chen catheter was inserted under sterile aseptic precautions A 5 mm skin incision was made below the left costal margin at the anterior axillary line. A Veress needle was inserted and pneumoperitoneum was established to a pressure of 15 mmHg. A 5 mm Optiview trocar was loaded on a 5 mm 30 laparoscope and the peritoneal cavity was entered under direct vision using the Optiview technique. Additional two 5 mm trocars were placed in the left lower quadrant and right upper quadrant. There was a Cameroonian cheese type hernia defect measuring 10 x 10 cm with multiple openings containing incarcerated me centrally, small bowel and omentum. The small bowel was reduced after external compression of the subcutaneous area. The bowel looked viable and and had peristalsis. The mesentry was inflamed and edematous. The hernia defect was wide up to 10 cm and had multiple latvian cheese defects and hence decision was made to convert into open. The hernia sac was circumferentially dissected. 1.5 cm fascial tissue was mobilized from the surrounding subcutaneous fat using Bovie electrocautery. The posterior rectus sheath was circumferentially dissected for placing mesh in the retrorectus space. The posterior rectus sheath was closed with running sutures of 2-0 Surgilon. A ventral lead ST mesh 12 x 6 cm was placed in the retrorectus space. The fascia was approximated in the midline using running sutures of double-stranded PDS 2. The hernia sac was excised. A PETR drain was left in the subcutaneous space. Skin and the subcutaneous tissue were approximated using 3-0 Vicryl followed by skin lamar. Pervenous wound VAC dressing applied. The sponge, instrument and needle count were correct x2. Patient was extubated and taken to post anesthesia care unit in stable condition.
[2017-03-31] MEDS ORDERED: BUPIVACAIN-EPI 0.5%-1:200,000 30 ML VIAL SQ ONE ×2 (00:41)
[2017-03-31] MEDS ORDERED: ALVIMOPAN 12 MG CAPSULE PO ONE (02:58)
[2017-03-31] MEDS: HYDROmorphone 0.5 MG/0.5 ML SYRINGE IVP PRN ×4 (03:52→18:02)
[2017-03-31 04:16] VITALS: BMI 31.3
[2017-03-31] MEDS: ONDANSETRON 4 MG/2 ML VIAL IVP PRN ×3 (07:30→18:02)
[2017-03-31 07:58] LABS: Basophils % (A) 0 %; CH 33.3; Eosinophils % (A) 0 %; HCT 45.7 % (39.0-53.0); HDW 2.68; HGB 14.9 gm/dL (13.0-17.5); Luc # (Auto) 0.09; Luc % (Auto) 1; Lymphocytes # (A) 0.8 k/uL (1.0-4.8); Lymphocytes % (A) 6 %; MCH 32.2 pg (25.0-35.0); MCHC 32.7 g/dL (31.0-37.0); MCV 98.5 fL (80.0-100.0); Mean Platelet Volume 8.5; Monocytes # (A) 0.7 k/uL (0-1.0); Monocytes % (A) 5 %; Neutrophils # (A) 11.6 k/uL (1.3-7.7); Neutrophils % (A) 88 %; RBC 4.64 m/uL (4.30-5.90); RDW 13.5 % (11.5-15.5); WBC 13.1 k/uL (3.8-10.6); WBC (Perox) 12.76
[2017-03-31] MEDS ORDERED: ONDANSETRON 4 MG/2 ML VIAL IVP ONE (08:14)
[2017-03-31] MEDS ORDERED: HYDROmorphone 0.5 MG/0.5 ML SYRINGE IVP PRN (08:14)
[2017-03-31 08:22] LABS: ALT 35 U/L (21-72); AST 25 U/L (17-59); Alkaline Phosphatase 47 U/L (38-126); Anion Gap 10 mmol/L; Blood Urea Nitrogen 8 mg/dL (9-20); Calcium 8.3 mg/dL (8.4-10.2); Carbon Dioxide 24 mmol/L (22-30); Chloride 106 mmol/L (98-107); Glucose 100 mg/dL (74-99); Magnesium 1.5 mg/dL (1.6-2.3); Non-African American GFR(MDRD) >60 (>60 ml/min/1.73 sqM); Potassium 3.9 mmol/L (3.5-5.1); Sodium 140 mmol/L (137-145); Total Bilirubin 1.1 mg/dL (0.2-1.3); Total Protein 5.7 g/dL (6.3-8.2)
[2017-03-31] MEDS ORDERED: Magnesium Replacement Protocol 1 EACH MISC MISCELLANE PRN (08:45)
[2017-03-31] MEDS: LACTATED RINGERS 1,000 ML IV SCH ×2 (09:23→13:02)
[2017-03-31] MEDS: PANTOPRAZOLE 40 MG/10 ML VIAL IV SCH (09:25)
[2017-03-31] MEDS: HEPARIN SODIUM,PORCINE 5,000 UNIT/ML 1 ML VIAL SQ SCH ×2 (09:25→15:13)
[2017-03-31] MEDS: ACETAMINOPHEN IV (For NPO) 1,000 MG in EMPTY BAG 1 BAG IVPB SCH ×3 (09:25→21:07)
[2017-03-31] MEDS: ALVIMOPAN 12 MG CAPSULE PO SCH ×2 (09:26→21:06)
[2017-03-31] MEDS ORDERED: LORATADINE 10 MG TAB PO PRN (11:47)
[2017-03-31] MEDS ORDERED: NITROGLYCERIN SL TABS 0.4 MG TAB SUBLINGUAL PRN (11:47)
--- NOTE | 2017-03-31 11:47 | P.CONS ---
History of Present Illness - Reason for Consult Consult date: 03/31/17 Medical management Requesting physician: Katherine Kincaid - Chief Complaint Incisional hernia - History of Present Illness 7-year-old male presents to the emergency department with incisional hernia, patient was supposed to have a surgical repair on Saturday. Patient states Saturday started having significant pain is dry heaving all day, patient states that he felt fine and Saturday he was having significant pain and vomiting patient developed denies vomiting at the time of admission but was nauseated denied fevers denied chills denies back pain patient also denies dysuria or hematuria and frequency. Patient denies chest pain shortness of breath or dyspnea. Review of Systems Constitutional: Reports as per HPI, Reports anorexia Ears, nose, mouth and throat: Reports as per HPI Cardiovascular: Reports as per HPI, Reports shortness of breath Respiratory: Reports as per HPI Gastrointestinal: Reports abdominal pain, Reports loss of appetite, Reports nausea, Reports vomiting Genitourinary: Reports as per HPI Musculoskeletal: Reports as per HPI Integumentary: Reports as per HPI Neurological: Reports as per HPI Past Medical History Past Medical History: Coronary Artery Disease (CAD), GERD/Reflux, Hyperlipidemia , Hypertension, Myocardial Infarction (DC), Osteoarthritis (OA) Additional Past Medical History / Comment(s): States "coded" during bowel prep for colonoscopy 06/2015, anemia, hiatal hernia, occ irregular heartbeat, gout, hx of low sodium., low iron (received iron transfusions), genital herpes., incisional hernia- states occasional vomiting. Last Myocardial Infarction Date:: 2015 History of Any Multi-Drug Resistant Organisms: None Reported Past Surgical History: Adenoidectomy, Appendectomy, Cholecystectomy, Coronary Bypass/CABG, Heart Catheterization With Stent, Tonsillectomy Additional Past Surgical History / Comment(s): total 4 stents, CABG 1994, surgery on rt eye(hit in eyeball with frisbe), Endo capsule, EGD, Colonoscopy Past Anesthesia/Blood Transfusion Reactions: Previous Problems w/ Anesthesia, Blood Transfusion Reaction, Motion Sickness Additional Past Anesthesia/Blood Transfusion Reaction / Comm: Hallucinations with last anesthesia, "felt funny' when getting last transfusion. Date of Last Stent Placement:: 2015 Past Psychological History: No Psychological Hx Reported Smoking Status: Former smoker Past Alcohol Use History: Rare Past Drug Use History: None Reported - Past Family History Mother Family Medical History: Coronary Artery Disease (CAD), Hypertension Father Family Medical History: CVA/TIA Brother(s) Family Medical History: No Reported History Sister(s) Family Medical History: Cancer, Thyroid Disorder Additional Family Medical History / Comment(s): THYROID CANCER Son(s) Family Medical History: Cancer Daughter(s) Family Medical History: No Reported History Medications and Allergies Home Medications Medication Instructions Recorded Confirmed Type RX: Allopurinol [Zyloprim] 100 mg PO DAILY 07/28/15 03/31/17 History RX: Nitroglycerin Sl Tabs 0.4 mg SUBLINGUAL Q5M PRN #25 tab 08/02/15 03/31/17 Rx [Nitrostat] RX: Rosuvastatin Calcium [Crestor] 40 mg PO DAILY #30 tab 01/20/16 03/31/17 Rx Famotidine [Pepcid] 20 mg PO BID 07/06/16 03/31/17 History Ferrous Sulfate [Feosol] 325 mg PO BID 07/06/16 03/31/17 History Lisinopril [Zestril] 10 mg PO DAILY 07/06/16 03/31/17 History RX: Ezetimibe [Zetia] 10 mg PO HS 07/06/16 03/31/17 History Aspirin [Adult Low Dose Aspirin EC] 81 mg PO DAILY 03/27/17 03/31/17 History Loratadine [Claritin] 10 mg PO DAILY PRN 03/27/17 03/31/17 History RX: Metoprolol Tartrate [Lopressor] 12.5 mg PO BID 03/27/17 03/31/17 History Sennosides [Senna] 8.6 mg PO DAILY 03/27/17 03/31/17 History valACYclovir [Valtrex] 500 mg PO DAILY PRN 03/31/17 03/31/17 History Allergies Allergy/AdvReac Type Severity Reaction Status Date / Time codeine Allergy makes Verified 03/31/17 09:19 headache worse egg yolk Allergy stomach Verified 03/31/17 09:19 ache atorvastatin calcium AdvReac Abdominal Verified 03/31/17 09:19 [From Lipitor] Pain Physical Exam Osteopathic Statement: *. No significant issues noted on an osteopathic structural exam other than those noted in the History and Physical/Consult. Vitals: Vital Signs Temp Pulse Pulse Pulse Resp BP BP 03/31/17 08:00 97.1 F L 76 16 145/73 03/31/17 05:45 74 139/70 03/31/17 05:30 68 137/68 03/31/17 05:15 70 141/67 03/31/17 05:00 75 149/72 03/31/17 04:45 63 140/65 03/31/17 04:30 70 147/76 03/31/17 04:15 65 151/74 03/31/17 04:07 16 03/31/17 04:00 67 156/75 03/31/17 03:45 98.8 F 62 16 164/80 03/31/17 03:24 68 16 148/80 03/31/17 03:09 66 16 151/80 03/31/17 02:54 98.4 F 63 16 157/77 03/30/17 23:56 98.7 F 84 18 144/72 03/30/17 22:51 63 18 140/66 03/30/17 20:50 99.2 F 68 16 137/97 Pulse Ox 03/31/17 08:00 95 03/31/17 05:45 97 03/31/17 05:30 97 03/31/17 05:15 99 03/31/17 05:00 97 03/31/17 04:45 98 03/31/17 04:30 96 03/31/17 04:15 96 03/31/17 04:07 03/31/17 04:00 97 03/31/17 03:45 97 03/31/17 03:24 99 03/31/17 03:09 96 03/31/17 02:54 95 03/30/17 23:56 96 03/30/17 22:51 95 03/30/17 20:50 98 Intake and Output 03/30/17 03/31/17 03/31/17 22:59 06:59 14:59 Other: Voiding Method Indwelling Catheter Indwelling Catheter Weight 90.718 kg 90.718 kg General: [Patient awake, alert and oriented times 3. Patient in no acute distress.] HEENT: [PERRL. EOMI. No pharyngeal erythema or exudate.] Neck: [No adenopathy.] Cardiac: [Heart regular in rate and rhythm. No S3. No S4. No clicks, rubs. No murmur.] Lungs: [Clear to auscultation bilaterally.] Abdomen: [No mass. No organomegaly. Bowel sounds presnt and normoactive in all 4 quadrants.] Incisional tenderness wound is clean and dry Extremes: [No edema no cyanosis no claudication normal pulses] : [] Musculoskeletal: [No joint erythema, edema or tenderness.] Skin: [No rash.] Neurologic: [No lateralizing deficits. CN II - XII grossly intact.] Lymphatic: [No adenopathy.] Results CBC & Chem 7: 03/31/17 06:12 03/31/17 06:12 Labs: Abnormal Lab Results - Last 24 Hours (Table) 03/30/17 03/30/17 03/30/17 Range/Units 22:11 22:11 22:49 WBC 11.1 H (3.8-10.6) k/uL Neutrophils # 8.7 H (1.3-7.7) k/uL Lymphocytes # (1.0-4.8) k/uL BUN (9-20) mg/dL Glucose 116 H (74-99) mg/dL Calcium (8.4-10.2) mg/dL Magnesium (1.6-2.3) mg/dL Total Protein (6.3-8.2) g/dL Albumin (3.5-5.0) g/dL Urine Protein Trace H (Negative) Urine Bilirubin 1+ H (Negative) 03/31/17 03/31/17 Range/Units 06:12 06:12 WBC 13.1 H (3.8-10.6) k/uL Neutrophils # 11.6 H (1.3-7.7) k/uL Lymphocytes # 0.8 L (1.0-4.8) k/uL BUN 8 L (9-20) mg/dL Glucose 100 H (74-99) mg/dL Calcium 8.3 L (8.4-10.2) mg/dL Magnesium 1.5 L (1.6-2.3) mg/dL Total Protein 5.7 L (6.3-8.2) g/dL Albumin 3.2 L (3.5-5.0) g/dL Urine Protein (Negative) Urine Bilirubin (Negative) Assessment and Plan (1) Incarcerated incisional hernia Narrative/Plan: Patient had surgical repair per Dr. Katherine Edwards general surgery This hernia was repaired last year I believe in patient had recurrence Status: Acute (2) Acute [place] Narrative/Plan: History of angioplasty and stent placement Gastroesophageal reflux by history hyperlipidemia by history Hypertension by history Patient has hiatal hernia a history Regular heartbeat by history 4 vessel CABG in 95 Status: Acute Plan: Postop day 1 Patient is stable denies chest pain denies shortness of breath We'll continue to follow closely Time with Patient: Greater than 30
[2017-03-31] MEDS: MAGNESIUM SULFATE-D5W PMX 1 GM in DEXTROSE/WATER 1 100ML.BAG IVPB SCH ×2 (12:03→13:02)
--- NOTE | 2017-03-31 19:57 | P.PN ---
Subjective Progress Note Date: 03/31/17 Principal diagnosis: S/p open incarcerated ventral hernia repair with mesh POD#0 S/P open incarcerated ventral incisional hernia repair with mesh. Pain fairly controlled. Good UO. No bowel function yet Objective - Vital Signs Vital signs: Vital Signs Temp 97.6 F 03/31/17 19:00 Pulse 71 03/31/17 19:00 Resp 16 03/31/17 19:00 BP 117/61 03/31/17 19:00 Pulse Ox 95 03/31/17 19:00 Intake & Output 03/31/17 03/31/17 04/01/17 06:59 18:59 06:59 Intake Total 1100 Output Total 840 Balance 260 Weight 90.718 kg Intake: Intake, IV Titration 1100 Amount ACETAMINOPHEN IV (For NPO 100 ) 1,000 mg In Empty Bag 1 bag @ 400 mls/hr IVPB TID MARY KATE Rx#:[id number] Lactated Ringers 1,000 ml 800 @ 125 mls/hr IV .Q8H MARY KATE Rx#:[id number] Magnesium Sulfate-D5w Pmx 200 1 gm In Dextrose/Water 1 100ml.bag @ 100 mls/hr IVPB Q1H MARY KATE Rx#: [id number] Output: Drainage 40 Right Abdomen 40 Urine 800 Other: Voiding Method Indwelling Catheter Indwelling Catheter - Constitutional General appearance: Present: mild distress - Cardiovascular Rhythm: regular - Gastrointestinal General gastrointestinal: Present: absent bowel sounds, tenderness - Musculoskeletal Musculoskeletal: Present: gait normal - Psychiatric Psychiatric: Present: A&O x's 3 - Labs CBC & Chem 7: 03/31/17 06:12 03/31/17 06:12 Labs: Abnormal Lab Results - Last 24 Hours (Table) 03/30/17 03/30/17 03/30/17 Range/Units 22:11 22:11 22:49 WBC 11.1 H (3.8-10.6) k/uL Neutrophils # 8.7 H (1.3-7.7) k/uL Lymphocytes # (1.0-4.8) k/uL BUN (9-20) mg/dL Glucose 116 H (74-99) mg/dL Calcium (8.4-10.2) mg/dL Magnesium (1.6-2.3) mg/dL Total Protein (6.3-8.2) g/dL Albumin (3.5-5.0) g/dL Urine Protein Trace H (Negative) Urine Bilirubin 1+ H (Negative) 03/31/17 03/31/17 Range/Units 06:12 06:12 WBC 13.1 H (3.8-10.6) k/uL Neutrophils # 11.6 H (1.3-7.7) k/uL Lymphocytes # 0.8 L (1.0-4.8) k/uL BUN 8 L (9-20) mg/dL Glucose 100 H (74-99) mg/dL Calcium 8.3 L (8.4-10.2) mg/dL Magnesium 1.5 L (1.6-2.3) mg/dL Total Protein 5.7 L (6.3-8.2) g/dL Albumin 3.2 L (3.5-5.0) g/dL Urine Protein (Negative) Urine Bilirubin (Negative) Assessment and Plan (1) Incarcerated incisional hernia Status: Acute (2) CAD (coronary artery disease) Status: Acute (3) HTN (hypertension) Status: Acute (4) Hx of CABG Status: Acute Plan: 1. Check CBC, CMP in am 2. Start aspirin 81 mg on 04/01/17 3. Ambulate in hallways 4. IS use 5. Sips of clears 6. Advance diet once bowel function returns
[2017-03-31] MEDS: EZETIMIBE 10 MG TAB PO SCH (21:06)
[2017-03-31] MEDS: FAMOTIDINE 20 MG TAB PO SCH (21:06)
[2017-03-31] MEDS: FERROUS SULFATE 325 MG TAB PO SCH (21:06)
[2017-03-31] MEDS: METOPROLOL TARTRATE 12.5 MG TAB PO SCH (21:06)
--- NOTE | 2017-03-31 22:28 | CONS ---
CONSULTATION Mr. Wyatt is seen for cardiac evaluation. This 61-year-old gentleman has a history of chronic hernia and the patient was supposed to have elective hernia repair on Saturday. However he presented to the emergency room with severe worsening abdominal pain. The patient underwent surgery last night. The patient tolerated the surgery well. This patient has a known history of coronary artery disease with a prior history of multiple stents. The patient had a closure of the saphenous vein graft to the circumflex coronary artery after surgery about a year ago and had a stent placed. Patient has been taking aspirin and Plavix. His Plavix was on hold for last 1 week. He has been doing fairly well. Denies any chest pain, or shortness of breath at present. PAST MEDICAL HISTORY: Includes a history of coronary artery bypass surgery and multiple stents, appendicectomy, cholecystectomy, last stent placed in 2015. SOCIAL HISTORY: The patient is a former smoker. PHYSICAL EXAMINATION: At present reveals a 61-year-old gentleman who does not appear to be in any acute distress. The patient is afebrile. Blood pressure is 130/80 mmHg. HEENT examination is negative. NECK: Supple. There is no increase in jugular venous pressure. Both the carotid pulses are felt. There is no bruit. Chest is symmetrical. Heart the PMI is not felt. First and second heart sounds are normal. There is no evidence of any murmur. Lungs are clinically clear to auscultation and percussion. ABDOMEN: Soft. Extremities peripheral pulses 1+. IMPRESSION: 1. This patient is status post surgery for incisional hernia. Patient is stable cardiac-goodman. 2. Patient has a known history of coronary artery disease with a prior history of coronary artery bypass surgery and multiple stents. Last stent was placed in about a year ago. The patient's Plavix has been on hold for 1 week. I will recommend to resume the Plavix and aspirin today if it is okay with the surgeon. We will recommend to resume the patient's beta khris. Thank you very much for letting me participate in the care of this nice gentleman. MMODL / IJN: [id number] /
[2017-04-01] MEDS: ONDANSETRON 4 MG/2 ML VIAL IVP PRN ×4 (00:42→18:25)
[2017-04-01] MEDS: HEPARIN SODIUM,PORCINE 5,000 UNIT/ML 1 ML VIAL SQ SCH ×3 (00:43→15:52)
[2017-04-01] MEDS: HYDROmorphone 0.5 MG/0.5 ML SYRINGE IVP PRN ×3 (00:43→12:03)
[2017-04-01] MEDS: LACTATED RINGERS 1,000 ML IV SCH ×6 (08:04→20:45)
[2017-04-01] MEDS: ALVIMOPAN 12 MG CAPSULE PO SCH ×2 (08:05→20:46)
[2017-04-01] MEDS: ALLOPURINOL 100 MG TAB PO SCH (08:05)
[2017-04-01] MEDS: FAMOTIDINE 20 MG TAB PO SCH ×2 (08:06→20:46)
[2017-04-01] MEDS: ATORVASTATIN 80 MG TAB PO SCH (08:06)
[2017-04-01] MEDS: FERROUS SULFATE 325 MG TAB PO SCH ×2 (08:06→20:47)
[2017-04-01] MEDS: SENNOSIDES 8.6 MG TAB PO SCH (08:07)
[2017-04-01] MEDS: METOPROLOL TARTRATE 12.5 MG TAB PO SCH (08:07)
[2017-04-01] MEDS: PANTOPRAZOLE 40 MG/10 ML VIAL IV SCH (08:07)
--- NOTE | 2017-04-01 08:40 | P.PN ---
Subjective Progress Note Date: 04/01/17 61-year-old male seen and examined resting comfortably in bed. States pain medication effective for pain control. Denies chest pain dizziness or lightheadedness or shortness of breath. Recommendations by cardiology noted. Recommend restarting aspirin Plavix .patient is postop diagnostic laparoscopic open incarcerated recurrent ventral hernia repair with mesh done on the Objective - Vital Signs Vital signs: Vital Signs Temp 98.3 F 04/01/17 07:00 Pulse 71 04/01/17 07:00 Resp 12 04/01/17 08:00 BP 145/86 04/01/17 07:00 Pulse Ox 96 04/01/17 07:00 Intake & Output 03/31/17 04/01/17 04/01/17 18:59 06:59 18:59 Intake Total 1100 2100 Output Total 840 875 Balance 260 1225 Intake: Intake, IV Titration 1100 1100 Amount ACETAMINOPHEN IV (For NPO 100 100 ) 1,000 mg In Empty Bag 1 bag @ 400 mls/hr IVPB TID [facility] Rx#:[id number] Lactated Ringers 1,000 ml 800 1000 @ 125 mls/hr IV .Q8H [facility] Rx#:[id number] Magnesium Sulfate-D5w Pmx 200 1 gm In Dextrose/Water 1 100ml.bag @ 100 mls/hr IVPB Q1H [facility] Rx#: [id number] Oral 1000 Output: Drainage 40 25 Abdomen 25 Right Abdomen 40 Urine 800 850 Other: Voiding Method Indwelling Catheter Indwelling Catheter Indwelling Catheter - Exam physical exam 61-year-old man pleasant cooperative sitting up in bed oriented times to Lungs essentially clear adequate air movement Heart S1-S2 audible regular denying chest pain Abdomen surgical dressing dry PETR drain right quadrant.prevena drain in place surgical tenderness appropriate not distended hypoactive bowel tones noted indwelling Chen catheter in place Extremities Venodyne's on bilateral lower extremities - Labs CBC & Chem 7: 03/31/17 06:12 03/31/17 06:12 Assessment and Plan Plan: impression status post open incarcerated ventral hernia with hernia repair with mesh known coronary artery disease with prior coronary artery bypass grafting with prior coronary stent hypertension essential Plan Continue postop surgical care Cardiology recommends restarting aspirin and Plavix hold restarting Plavix for now Will start aspirin 81 mg daily Remove Chen catheter now Pain control Home meds as appropriate DVT and GI prophylaxis check labs pending start clear liquid diet The above impression and plan of care have been discussed and directed by signing physician. Keiry Begum nurse practitioner acting as scribe for signing physician.
[2017-04-01] MEDS: ACETAMINOPHEN IV (For NPO) 1,000 MG in EMPTY BAG 1 BAG IVPB SCH ×3 (09:00→22:35)
[2017-04-01] MEDS ORDERED: LISINOPRIL 10 MG TAB PO SCH (09:00)
[2017-04-01] MEDS: ASPIRIN 81 MG PO SCH (09:44)
[2017-04-01] MEDS ORDERED: METOPROLOL TARTRATE 12.5 MG TAB PO ONE (10:45)
[2017-04-01 11:54] LABS: Basophils % (A) 0 %; CH 32.9; CHCM 32.8; Eosinophils # (A) 0.3 k/uL (0-0.7); Eosinophils % (A) 4 %; HCT 46.3 % (39.0-53.0); HDW 2.72; HGB 14.9 gm/dL (13.0-17.5); Luc # (Auto) 0.06; Luc % (Auto) 1; Lymphocytes # (A) 0.6 k/uL (1.0-4.8); Lymphocytes % (A) 7 %; MCH 32.5 pg (25.0-35.0); MCHC 32.2 g/dL (31.0-37.0); Macrocytosis Slight; Monocytes # (A) 0.6 k/uL (0-1.0); Monocytes % (A) 7 %; Neutrophils # (A) 6.8 k/uL (1.3-7.7); Neutrophils % (A) 82 %; RBC 4.58 m/uL (4.30-5.90); WBC 8.3 k/uL (3.8-10.6); WBC (Perox) 8.32
--- NOTE | 2017-04-01 13:32 | P.PN ---
Subjective Progress Note Date: 04/01/17 Mr. Wyatt is a 61-year-old male. Past medical history significant for CAD with CABG and multiple stents of grafts, HTN, HLD and gastroesophageal reflux disease. He follows regularly with Dr. Krishna as an outpatient. We are seeing the patient in follow-up today s/p open repair of incarcerated ventral hernia late Saturday night. He was scheduled for outpatient procedure today, but presented Saturday in severe pain. He had an episode of non-sustained ventricular tachycardia, 17 beats. He is in sinus mechanism before and after the episode. He states he can tell he was having abnormal beats but denies chest pain, shortness of breath, dizziness or nausea. He continues to complain of abdominal pain typical of post-surgical nature. Prior to surgery he was on aspirin and plavix. His last stent was over a year ago, therefore Plavix doesn't need to be resumed. Objective - Vital Signs Vital signs: Vital Signs Temp 98.3 F 04/01/17 07:00 Pulse 71 04/01/17 07:00 Resp 12 04/01/17 08:00 BP 145/86 04/01/17 07:00 Pulse Ox 96 04/01/17 07:00 Intake & Output 03/31/17 04/01/17 04/01/17 18:59 06:59 18:59 Intake Total 1100 2100 Output Total 840 875 300 Balance 260 1225 -300 Intake: Intake, IV Titration 1100 1100 Amount ACETAMINOPHEN IV (For NPO 100 100 ) 1,000 mg In Empty Bag 1 bag @ 400 mls/hr IVPB TID [facility] Rx#:[id number] Lactated Ringers 1,000 ml 800 1000 @ 125 mls/hr IV .Q8H [facility] Rx#:[id number] Magnesium Sulfate-D5w Pmx 200 1 gm In Dextrose/Water 1 100ml.bag @ 100 mls/hr IVPB Q1H [facility] Rx#: [id number] Oral 1000 Output: Drainage 40 25 Abdomen 25 Right Abdomen 40 Urine 800 850 300 Other: Voiding Method Indwelling Catheter Indwelling Catheter Indwelling Catheter - Exam GENERAL: Well-appearing, well-nourished and in no acute distress. NECK: Supple without JVD or thyromegaly. LUNGS: Breath sounds clear to auscultation bilaterally. Respiration equal and unlabored. No wheezes, rales or rhonchi. HEART: Regular rate and rhythm without murmurs, rubs or gallops. S1 and S2 heard. EXTREMITIES: Normal range of motion, no edema. No clubbing or cyanosis. Peripheral pulses intact and strong. - Labs CBC & Chem 7: 04/01/17 07:52 03/31/17 06:12 Labs: Abnormal Lab Results - Last 24 Hours (Table) 04/01/17 Range/Units 07:52 MCV 101.0 H (80.0-100.0) fL Lymphocytes # 0.6 L (1.0-4.8) k/uL Assessment and Plan Plan: ASSESSMENT 1. Chronic stable coronary artery disease status post CABG 2. Nonsustained ventricular tachycardia 3. Essential hypertension 4. Hyperlipidemia 5. Postoperative day #1 open repair incarcerated ventral hernia PLAN From cardiac standpoint we will increase beta khris to 25 mg PO BID. Continue aspirin therapy, plavix not required any longer. Continue cardiac monitoring to assess for any further arrhythmia. We will continue to follow with this patient. Further recommendations will be based upon clinical course. Nurse Practitioner note has been reviewed, I agree with a documented findings and plan of care. Patient was seen and examined.
--- NOTE | 2017-04-01 14:12 | P.PN ---
Subjective Progress Note Date: 04/01/17 61 year old male seen and examined at the bedside. Patient is s/p open incarcerated ventral hernia repair, POD #1. Dr. Schilling is on consult for medical management. The patient denies chest pain or pressure. He denies shortness of breath. His bolaños catheter was ordered to be discontinued today. He was started on a clear liquid diet per surgical service. He is complaining of moderate pain that is consistent with post-operative course. His lab work was reviewed. His vital signs have been stable. He is afebrile. He did have a 17 beat run of V-tach this morning. He was seen by cardiology who recommended increasing his beta-khris. Objective - Vital Signs Vital signs: Vital Signs Temp 98.3 F 04/01/17 07:00 Pulse 71 04/01/17 07:00 Resp 12 04/01/17 08:00 BP 145/86 04/01/17 07:00 Pulse Ox 96 04/01/17 07:00 Intake & Output 03/31/17 04/01/17 04/01/17 18:59 06:59 18:59 Intake Total 1100 2100 Output Total 840 875 500 Balance 260 1225 -500 Intake: Intake, IV Titration 1100 1100 Amount ACETAMINOPHEN IV (For NPO 100 100 ) 1,000 mg In Empty Bag 1 bag @ 400 mls/hr IVPB TID [facility] Rx#:[id number] Lactated Ringers 1,000 ml 800 1000 @ 125 mls/hr IV .Q8H [facility] Rx#:[id number] Magnesium Sulfate-D5w Pmx 200 1 gm In Dextrose/Water 1 100ml.bag @ 100 mls/hr IVPB Q1H [facility] Rx#: [id number] Oral 1000 Output: Drainage 40 25 Abdomen 25 Right Abdomen 40 Urine 800 850 500 Other: Voiding Method Indwelling Catheter Indwelling Catheter Indwelling Catheter # Voids 1 - Exam GENERAL: Alert and oriented. Appears in no acute distress. Pleasant. RESPIRATORY: Lungs clear bilaterally. No use of accessory muscles. Patient maintaining oxygen saturation greater than 92%. CARDIOVASCULAR: S1 and S2 noted. No murmurs auscultated. No JVD noted. EXTREMITIES: No edema noted. Palpable pedal pulses +2. ABDOMEN: PETR drain in place. dressing clean dry and intact. Abdomen soft and round. Hypoactive bowel sounds auscultated 4 quadrants. - Labs CBC & Chem 7: 04/01/17 07:52 03/31/17 06:12 Labs: Abnormal Lab Results - Last 24 Hours (Table) 04/01/17 Range/Units 07:52 MCV 101.0 H (80.0-100.0) fL Lymphocytes # 0.6 L (1.0-4.8) k/uL Assessment and Plan Plan: ASSESSMENT: -S/P open incarcerated ventral hernia repair with mesh, POD #1 -Coronary artery disease with prior stenting x4 and CABG (1994) -Nonsustained ventricular tachycardia -Essential hypertension -Hyperlipidemia -History of gastroesophageal reflux disease PLAN: -Continue post op care per surgical service -Cardiology on consult -Beta khris increased per cardiology -Monitor telemetry -Clear liquid diet started per surgery -Bolaños catheter DC per surgery -Resume home meds as appropriate -Monitor labs -GI prophylaxis: Pepcid 20mg PO BID -DVT prophylaxis: Heparin 5000 units subcu every 8 hours -Monitor vital signs and address as appropriate The above impression and plan of care have been discussed and directed by signing physician. Ruby Diop, nurse practitioner, acting as scribe for signing physician.
[2017-04-01] MEDS: EZETIMIBE 10 MG TAB PO SCH (20:46)
[2017-04-01] MEDS: METOPROLOL TARTRATE 25 MG TAB PO SCH (20:47)
[2017-04-02] MEDS: HEPARIN SODIUM,PORCINE 5,000 UNIT/ML 1 ML VIAL SQ SCH ×2 (00:28→09:01)
[2017-04-02] MEDS: LACTATED RINGERS 1,000 ML IV SCH ×2 (00:28→11:47)
[2017-04-02] MEDS: ONDANSETRON 4 MG/2 ML VIAL IVP PRN ×2 (00:32→06:23)
[2017-04-02 07:07] VITALS: BP 160/82; PULSE 63; RESP 12; TEMP 98.5
[2017-04-02 08:09] LABS: Basophils % (A) 0 %; CH 32.5; CHCM 33.3; Eosinophils # (A) 0.3 k/uL (0-0.7); Eosinophils % (A) 4 %; HCT 44.9 % (39.0-53.0); HDW 2.78; HGB 14.2 gm/dL (13.0-17.5); Luc # (Auto) 0.14; Luc % (Auto) 2; Lymphocytes # (A) 0.7 k/uL (1.0-4.8); Lymphocytes % (A) 9 %; MCHC 31.7 g/dL (31.0-37.0); MCV 97.8 fL (80.0-100.0); Mean Platelet Volume 7.7; Monocytes # (A) 0.6 k/uL (0-1.0); Monocytes % (A) 8 %; Neutrophils # (A) 6.5 k/uL (1.3-7.7); Neutrophils % (A) 78 %; RBC 4.59 m/uL (4.30-5.90); WBC 8.3 k/uL (3.8-10.6); WBC (Perox) 8.07
[2017-04-02 08:14] LABS: ALT 31 U/L (21-72); AST 22 U/L (17-59); Alkaline Phosphatase 56 U/L (38-126); Anion Gap 7 mmol/L; Blood Urea Nitrogen 9 mg/dL (9-20); Calcium 8.3 mg/dL (8.4-10.2); Carbon Dioxide 26 mmol/L (22-30); Chloride 105 mmol/L (98-107); Glucose 83 mg/dL (74-99); Non-African American GFR(MDRD) >60 (>60 ml/min/1.73 sqM); Potassium 4.3 mmol/L (3.5-5.1); Sodium 138 mmol/L (137-145); Total Bilirubin 1.6 mg/dL (0.2-1.3); Total Protein 5.4 g/dL (6.3-8.2)
[2017-04-02] MEDS: ATORVASTATIN 80 MG TAB PO SCH (08:59)
[2017-04-02] MEDS: METOPROLOL TARTRATE 25 MG TAB PO SCH (09:00)
[2017-04-02] MEDS: ASPIRIN 81 MG PO SCH (09:00)
[2017-04-02] MEDS ORDERED: LISINOPRIL 20 MG TAB PO SCH (09:00)
[2017-04-02] MEDS: SENNOSIDES 8.6 MG TAB PO SCH (09:00)
[2017-04-02] MEDS: FERROUS SULFATE 325 MG TAB PO SCH (09:00)
[2017-04-02] MEDS: ACETAMINOPHEN IV (For NPO) 1,000 MG in EMPTY BAG 1 BAG IVPB SCH (09:01)
[2017-04-02] MEDS: ALLOPURINOL 100 MG TAB PO SCH (09:01)
[2017-04-02] MEDS: FAMOTIDINE 20 MG TAB PO SCH (09:01)
[2017-04-02] MEDS: ALVIMOPAN 12 MG CAPSULE PO SCH (09:01)
--- NOTE | 2017-04-02 09:27 | P.PN ---
<Olimpia Begumne Anuradha - Last Filed: 04/02/17 09:17> Subjective Progress Note Date: 04/02/17 61-year-old seen and examined at bedside this morning. Nursing reports patient is reluctant to ambulate yesterday in the [place] sat up on the edge of the bed once. Patient currently is denying any dizziness lightheadedness or shortness of breath. Pulse ox sat on room air this morning 96. Did note the blood pressure is elevated this am 160/82. Patient states pain medication has been effective for pain control PETR drain in the right lower quadrant nursing documented 40 mL's yesterday output not documented this morning. Patient states passing gas no stool in urinating no difficulty. Telemetry showing sinus there's been no further episodes of nonsustained V. tach last episode yesterday morning April 01 patient is postop diagnostic laparoscopic open incarcerated recurrent ventral hernia repair with mesh done on the Objective - Vital Signs Vital signs: Vital Signs Temp 98.5 F 04/02/17 07:00 Pulse 63 04/02/17 07:00 Resp 12 04/02/17 07:00 BP 160/82 04/02/17 07:00 Pulse Ox 96 04/02/17 07:00 Intake & Output 04/01/17 04/02/17 04/02/17 18:59 06:59 18:59 Intake Total 1000 2000 Output Total 1190 1495 Balance -190 505 Intake: Intake, IV Titration 1000 2000 Amount Lactated Ringers 1,000 ml 1000 2000 @ 125 mls/hr IV .Q8H [facility] Rx#:[id number] Output: Drainage 40 75 Abdomen 40 Right Abdomen 75 Urine 1150 1420 Other: Voiding Method Indwelling Catheter # Voids 1 3 - Exam physical exam 61-year-old man resting in bed awake alert appears in no acute distress Lungs posterior dry crackles noted at the bases upper airways bronchial breath sounds sats on room air 96% no cough noted no shortness of breath with conversation Heart S1-S2 audible regular denying chest pain no murmur noted telemetry sinus rhythm Abdomen surgical dressing dry not distended PETR drain right quadrant.prevena drain in place surgical tenderness appropriate hypoactive bowel tones noted states urinating no difficulty reports no nausea vomiting no stool Extremities Venodyne's on bilateral lower extremities - Labs CBC & Chem 7: 04/02/17 07:09 04/02/17 07:09 Labs: Abnormal Lab Results - Last 24 Hours (Table) 04/01/17 04/02/17 04/02/17 Range/Units 07:52 07:09 07:09 MCV 101.0 H (80.0-100.0) fL Lymphocytes # 0.6 L 0.7 L (1.0-4.8) k/uL Calcium 8.3 L (8.4-10.2) mg/dL Total Bilirubin 1.6 H (0.2-1.3) mg/dL Total Protein 5.4 L (6.3-8.2) g/dL Albumin 2.9 L (3.5-5.0) g/dL Assessment and Plan Plan: impression status post open incarcerated ventral hernia with hernia repair with mesh known coronary artery disease with prior coronary artery bypass grafting with prior coronary stent hypertension essential lone episode April 01 nonsustained V. tach Plan Continue postop surgical care Cardiology recommends restarting aspirin and Plavix hold restarting Plavix for now Will start aspirin 81 mg daily Pain control Home meds as appropriate DVT and GI prophylaxis check labs pending Advance diet Prepped probable discharge this afternoon The above impression and plan of care have been discussed and directed by signing physician. Keiry Begum nurse practitioner acting as scribe for signing physician. <Katherine Kincaid - Last Filed: 04/03/17 11:05> Objective - Vital Signs Vital signs: Vital Signs Temp 98.5 F 04/02/17 07:00 Pulse 63 04/02/17 07:00 Resp 12 04/02/17 07:00 BP 160/82 04/02/17 07:00 Pulse Ox 96 04/02/17 07:00 Intake & Output 04/02/17 04/03/17 04/03/17 18:59 06:59 18:59 Other: # Voids 2 - Labs CBC & Chem 7: 04/02/17 07:09 04/02/17 07:09 Assessment and Plan (1) Incarcerated incisional hernia Status: Acute Code(s): K43.0 - INCISIONAL HERNIA WITH OBSTRUCTION, WITHOUT GANGRENE SNOMED Code(s): 929694403 (2) CAD (coronary artery disease) Status: Acute Code(s): I25.10 - ATHSCL HEART DISEASE OF [place] CORONARY ARTERY W/O ANG PCTRS SNOMED Code(s): 39549473 (3) HTN (hypertension) Status: Acute Code(s): I10 - ESSENTIAL (PRIMARY) HYPERTENSION SNOMED Code(s) : 50932835 (4) Hx of CABG Status: Acute Code(s): Z95.1 - PRESENCE OF AORTOCORONARY BYPASS GRAFT SNOMED Code(s): 017158232 Plan: Patient examined. 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 Plavix was stopped prior to surgery. Plan to continue with baby aspirin daily
[2017-04-02] MEDS ORDERED: HYDROcodone/APAP 5-325MG 1 EACH TAB PO PRN (09:29)
--- NOTE | 2017-04-02 10:02 | P.PN ---
Subjective Progress Note Date: 04/02/17 Mr. Wyatt is a 61-year-old male. Past medical history significant for CAD with CABG and multiple stents of grafts, HTN, HLD and gastroesophageal reflux disease. He follows regularly with Dr. Krishna as an outpatient. We are seeing the patient in follow-up today s/p open repair of incarcerated ventral hernia late Saturday night. He had an episode of non-sustained ventricular tachycardia, 17 beats and his beta khris was increased. Blood pressure this morning 160/82 with a heart rate of 63. He continues to be in a sinus mechanism with no further episodes of ventricular tachycardia present on telemetry. He continues to complain of abdominal pain typical of post-surgical nature and is actively passing gas. He denies chest pain, shortness of breath, dizziness, palpitations or diaphoresis. This patient appears flushed. Prior to surgery he was on aspirin and plavix. His last stent was over a year ago, therefore Plavix doesn't need to be resumed. Objective - Vital Signs Vital signs: Vital Signs Temp 98.5 F 04/02/17 07:00 Pulse 63 04/02/17 07:00 Resp 12 04/02/17 07:00 BP 160/82 04/02/17 07:00 Pulse Ox 96 04/02/17 07:00 Intake & Output 04/01/17 04/02/17 04/02/17 18:59 06:59 18:59 Intake Total 1000 2000 Output Total 1190 1495 Balance -190 505 Intake: Intake, IV Titration 1000 2000 Amount Lactated Ringers 1,000 ml 1000 2000 @ 125 mls/hr IV .Q8H [facility] Rx#:[id number] Output: Drainage 40 75 Abdomen 40 Right Abdomen 75 Urine 1150 1420 Other: Voiding Method Indwelling Catheter # Voids 1 3 - Exam GENERAL: Well-appearing, well-nourished and in no acute distress. NECK: Supple without JVD or thyromegaly. LUNGS: Rales left lower lung base. No wheezes or rhonchi. Respiration equal and unlabored. HEART: Regular rate and rhythm without murmurs, rubs or gallops. S1 and S2 heard. EXTREMITIES: Normal range of motion, no edema. No clubbing or cyanosis. Peripheral pulses intact and strong. - Labs CBC & Chem 7: 04/02/17 07:09 04/02/17 07:09 Labs: Abnormal Lab Results - Last 24 Hours (Table) 04/01/17 04/02/17 04/02/17 Range/Units 07:52 07:09 07:09 MCV 101.0 H (80.0-100.0) fL Lymphocytes # 0.6 L 0.7 L (1.0-4.8) k/uL Calcium 8.3 L (8.4-10.2) mg/dL Total Bilirubin 1.6 H (0.2-1.3) mg/dL Total Protein 5.4 L (6.3-8.2) g/dL Albumin 2.9 L (3.5-5.0) g/dL Assessment and Plan Plan: ASSESSMENT 1. Chronic stable coronary artery disease status post CABG 2. Nonsustained ventricular tachycardia, resolved 3. Essential hypertension 4. Hyperlipidemia 5. Postoperative day #2 open repair incarcerated ventral hernia PLAN Continue with current dose of beta khris. Continue aspirin therapy, plavix not required any longer. Obtain 1-view chest xray to evaluate for fluid overload. Blood pressure mildly elevated, most likely secondary to pain. This can be addressed as an outpatient after he is pain free. Nurse Practitioner note has been reviewed, I agree with a documented findings and plan of care. Patient was seen and examined.
--- NOTE | 2017-04-02 10:32 | XR ---
EXAMINATION TYPE: XR chest 1V portable DATE OF EXAM: 04/02/2017 COMPARISON: prior chest xray 07/06/2016 HISTORY: abnormal physical exam TECHNIQUE: Single frontal view of the chest is obtained. FINDINGS: Patient is post median sternotomy. Heart is enlarged. There is increased density seen in t he right upper lobe. No evident pneumothorax or pleural effusion. IMPRESSION: Findings may represent pneumonia, correlate for atypical presentation of congestive hear t failure. Follow-up recommended.
--- NOTE | 2017-04-02 10:59 | P.PN ---
Subjective Progress Note Date: 04/02/17 04/01/2017 61 year old male seen and examined at the bedside. Patient is s/p open incarcerated ventral hernia repair, POD #1. Dr. Schilling is on consult for medical management. The patient denies chest pain or pressure. He denies shortness of breath. His bolaños catheter was ordered to be discontinued today. He was started on a clear liquid diet per surgical service. He is complaining of moderate pain that is consistent with post-operative course. His lab work was reviewed. His vital signs have been stable. He is afebrile. He did have a 17 beat run of V-tach this morning. He was seen by cardiology who recommended increasing his beta-khris. 04/02/2017 Patient seen and examined at the bedside with Dr. Schilling. The patient states he is feeling okay and is anticipating discharges afternoon. His blood pressure has been elevated and his systolic is ranging between 140 and 160. Cardiology increased his Lopressor yesterday due to a 17 beat run of V. tach. No further episodes of Vtach. He takes lisinopril 10 mg daily at home. We will increase to 20 mg daily. Patient did not want to get up and work with PT yesterday but he has been up this morning and ambulated in the hallways. Lab work was reviewed this morning. PETR drain remains intact. Objective - Vital Signs Vital signs: Vital Signs Temp 98.5 F 04/02/17 07:00 Pulse 63 04/02/17 07:00 Resp 12 04/02/17 07:00 BP 160/82 04/02/17 07:00 Pulse Ox 96 04/02/17 07:00 Intake & Output 04/01/17 04/02/17 04/02/17 18:59 06:59 18:59 Intake Total 1000 2000 Output Total 1190 1495 Balance -190 505 Intake: Intake, IV Titration 1000 2000 Amount Lactated Ringers 1,000 ml 1000 2000 @ 125 mls/hr IV .Q8H [facility] Rx#:[id number] Output: Drainage 40 75 Abdomen 40 Right Abdomen 75 Urine 1150 1420 Other: Voiding Method Indwelling Catheter # Voids 1 3 - Exam GENERAL: Alert and oriented. Appears in no acute distress. Pleasant. RESPIRATORY: Lungs clear bilaterally. No use of accessory muscles. Patient maintaining oxygen saturation greater than 92%. CARDIOVASCULAR: S1 and S2 noted. No murmurs auscultated. No JVD noted. EXTREMITIES: No edema noted. Palpable pedal pulses +2. ABDOMEN: PETR drain in place. dressing clean dry and intact. Abdomen soft and round. Hypoactive bowel sounds auscultated 4 quadrants. - Labs CBC & Chem 7: 04/02/17 07:09 04/02/17 07:09 Labs: Abnormal Lab Results - Last 24 Hours (Table) 04/01/17 04/02/17 04/02/17 Range/Units 07:52 07:09 07:09 MCV 101.0 H (80.0-100.0) fL Lymphocytes # 0.6 L 0.7 L (1.0-4.8) k/uL Calcium 8.3 L (8.4-10.2) mg/dL Total Bilirubin 1.6 H (0.2-1.3) mg/dL Total Protein 5.4 L (6.3-8.2) g/dL Albumin 2.9 L (3.5-5.0) g/dL Assessment and Plan Plan: ASSESSMENT: -S/P open incarcerated ventral hernia repair with mesh, POD #2 -Coronary artery disease with prior stenting x4 and CABG (1994) -Nonsustained ventricular tachycardia -Essential hypertension -Hyperlipidemia -History of gastroesophageal reflux disease PLAN: -Continue post op care per surgical service -Cardiology on consult -Beta khris increased per cardiology yesterday -Increase lisinopril to 20mg daily -Monitor telemetry -Resume home meds as appropriate -Monitor labs -GI prophylaxis: Pepcid 20mg PO BID -DVT prophylaxis: Heparin 5000 units subcu every 8 hours -Monitor vital signs and address as appropriate -Patient can be discharged from a medical standpoint when okay with surgery -Patient does not need new prescriptions for lisinopril or Lopressor. He can double up on his current prescription until he sees Dr. Schilling or Suha in the office. The above impression and plan of care have been discussed and directed by signing physician. Ruby Diop, nurse practitioner, acting as scribe for signing physician.
[2017-04-02] MEDS ORDERED: CRESTOR 40 MG PO SCH (12:00)
--- NOTE | 2017-04-02 13:37 | P.DS ---
<Keiry Begum - Last Filed: 04/02/17 13:25> Providers Date of admission: 03/30/17 23:00 Expected date of discharge: 04/02/17 Attending physician: Katherine Kincaid Consults: 03/31/17 00:10 Consult Physician Routine Consulting Provider: Dilan Krishna Consult Reason/Comments: known patient /incarcerated hernia Do you want consulting provider notified?: Yes, Notify in am 03/31/17 00:11 Consult Physician Routine Consulting Provider: Alex Borden Consult Reason/Comments: medical managemnt Do you want consulting provider notified?: Yes, Notify in am Primary care physician: [facility] Course: 61-year-old male who has history of recurrent incisional hernia was scheduled for an elective hernia repair on Saturday this week. Patient presented to the emergency room worsening abdominal pain with nausea vomiting. Patient stated it started last Saturday in continued to become more symptomatic. Patient has a history of coronary artery bypass grafting and prior coronary stents with a recent stent a year ago. Patient has seen Dr. shirley. Patient was told to stop the Plavix and that he did not need to be on Plavix anymore and that he could be maintained on an aspirin 81 mg daily. Patient was admitted to surgical service underwent diagnostic laparoscopic open incarcerated recurrent ventral hernia repair with mesh done on the . Patient did have an episode postop isolated nonsustained V. tach asymptomatic no further events patient was followed throughout the hospitalization by cardiology service on the day of discharge patient was up ambulating in the hallway able to use the incentive spirometer lung mcdonnell clear on room air sats are 96% patient was felt to be appropriate to be discharged home impression status post open incarcerated ventral hernia with hernia repair with mesh known coronary artery disease with prior coronary artery bypass grafting with prior coronary stent hypertension essential lone episode April 01 nonsustained V. tach no further evaluate The above impression and plan of care have been discussed and directed by signing physician. Keiry Begum nurse practitioner acting as scribe for signing physician. Plan - Discharge Summary New Discharge Prescriptions: New Lisinopril [Zestril] 20 mg PO DAILY tab Metoprolol Tartrate [Lopressor] 25 mg PO BID tab HYDROcodone/APAP 5-325MG [[place] 5-325] 1 each PO Q4HR PRN #15 tab PRN Reason: Pain Continue Allopurinol [Zyloprim] 100 mg PO DAILY Nitroglycerin Sl Tabs [Nitrostat] 0.4 mg SUBLINGUAL Q5M PRN #25 tab PRN Reason: Chest Pain Rosuvastatin Calcium [Crestor] 40 mg PO DAILY #30 tab Famotidine [Pepcid] 20 mg PO BID Ferrous Sulfate [Feosol] 325 mg PO BID Ezetimibe [Zetia] 10 mg PO HS Aspirin [Adult Low Dose Aspirin EC] 81 mg PO DAILY Sennosides [Senna] 8.6 mg PO DAILY Loratadine [Claritin] 10 mg PO DAILY PRN PRN Reason: Allergy Symptoms valACYclovir [Valtrex] 500 mg PO DAILY PRN PRN Reason: Skin Irritation Discontinued Lisinopril [Zestril] 10 mg PO DAILY Metoprolol Tartrate [Lopressor] 12.5 mg PO BID Discharge Medication List Allopurinol [Zyloprim] 100 mg PO DAILY 07/28/15 [History] Nitroglycerin Sl Tabs [Nitrostat] 0.4 mg SUBLINGUAL Q5M PRN #25 tab 08/02/15 [Rx ] Rosuvastatin Calcium [Crestor] 40 mg PO DAILY #30 tab 01/20/16 [Rx] Ezetimibe [Zetia] 10 mg PO HS 07/06/16 [History] Famotidine [Pepcid] 20 mg PO BID 07/06/16 [History] Ferrous Sulfate [Feosol] 325 mg PO BID 07/06/16 [History] Aspirin [Adult Low Dose Aspirin EC] 81 mg PO DAILY 03/27/17 [History] Loratadine [Claritin] 10 mg PO DAILY PRN 03/27/17 [History] Sennosides [Senna] 8.6 mg PO DAILY 03/27/17 [History] valACYclovir [Valtrex] 500 mg PO DAILY PRN 03/31/17 [History] HYDROcodone/APAP 5-325MG [[place] 5-325] 1 each PO Q4HR PRN #15 tab 04/02/17 [Rx] Lisinopril [Zestril] 20 mg PO DAILY tab 04/02/17 [Rx] Metoprolol Tartrate [Lopressor] 25 mg PO BID tab 04/02/17 [Rx] Follow up Appointment(s)/Referral(s): Katherine Kincaid MD [STAFF PHYSICIAN] - 04/09/17 8:30 am Dilan Krishna MD [STAFF PHYSICIAN] - 2 Weeks ([employer] Manager unable to reach office to set up appointment, patient to please call after discharge) Alex Borden Jr, DO [Primary Care Provider] - 04/09/17 1:30 pm [facility] Visiting Nurse, [NON-STAFF] - Patient Instructions/Handouts: Yousif-Borrego Drain Care (DC), Incisional Hernia (DC) Activity/Diet/Wound Care/Special Instructions: Take 20mg lisinopril (Zestril) daily and 25mg Metoprolol (Lopressor) two times a day until you see Dr. Schilling or Dr. Borden in the office Care Plan Goals (MU): No lifting greater than 4 pounds until seen in a follow-up visit with the surgeon Yousif-Borrego drain instructions provided Continue with the use of the incentive spirometer use every 1 hour while awake at home Shower daily no tub bath Discharge Disposition: HOME SELF-CARE <Katherine Kincaid - Last Filed: 04/03/17 11:04> - Discharge Diagnosis(es) (1) Incarcerated incisional hernia Status: Acute (2) CAD (coronary artery disease) Status: Acute (3) HTN (hypertension) Status: Acute (4) Hx of CABG Status: Acute
[2017-04-02] MEDS ORDERED: ACETAMINOPHEN TAB 500 MG TAB PO SCH (16:00)
== END 2017-04-02 14:45 | disposition home or self-care (01) | DRG 354 ==
LOC: EC 20:39 → 3SUR 23:00
PROVIDERS: ADMIT Surgery; ATTEND Surgery
PROC: 0WUF0JZ Supplement Abdominal Wall with Synthetic Substitute, Open Approach (ICD-10-PCS; principal; 2017-03-30)
PROC: 0WQF4ZZ Repair Abdominal Wall, Percutaneous Endoscopic Approach (ICD-10-PCS; principal; 2017-03-30)
DX: K43.0 Incisional hernia with obstruction, without gangrene (principal); I47.2 Ventricular tachycardia; I10 Essential (primary) hypertension; E78.5 Hyperlipidemia, unspecified; E66.9 Obesity, unspecified; I25.10 Atherosclerotic heart disease of native coronary artery without angina pectoris; I25.2 Old myocardial infarction; K21.9 Gastro-esophageal reflux disease without esophagitis; M10.9 Gout, unspecified; Z79.82 Long term (current) use of aspirin; Z79.899 Other long term (current) drug therapy; Z80.8 Family history of malignant neoplasm of other organs or systems; Z82.49 Family history of ischemic heart disease and other diseases of the circulatory system; Z87.891 Personal history of nicotine dependence; Z95.1 Presence of aortocoronary bypass graft; Z95.5 Presence of coronary angioplasty implant and graft; Z88.5 Allergy status to narcotic agent
CPT/HCPCS: 36415; 71010; 80053; 81003; 82150; 83605; 83690; 83735; 85025; 96374; 96375; 99284

== ENCOUNTER 2018-01-15 12:13 | Observation (INO) | payer BC ==
[2018-01-15] MEDS ORDERED: NITROGLYCERIN SL TABS 0.4 MG TAB SUBLINGUAL STA (12:29)
[2018-01-15] MEDS ORDERED: ASPIRIN 81 MG PO STA (12:29)
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
[2018-01-15 12:46] LABS: Basophils % (A) 0 %; Eosinophils # (A) 0.2 k/uL (0-0.7); Eosinophils % (A) 1 %; HCT 48.2 % (39.0-53.0); HGB 15.7 gm/dL (13.0-17.5); Lymphocytes # (A) 1.2 k/uL (1.0-4.8); Lymphocytes % (A) 10 %; MCHC 32.6 g/dL (31.0-37.0); Mean Platelet Volume 7.2; Monocytes # (A) 0.4 k/uL (0-1.0); Monocytes % (A) 4 %; Neutrophils # (A) 9.6 k/uL (1.3-7.7); Neutrophils % (A) 83 %; Platelet Count 220 k/uL (150-450); RBC 5.08 m/uL (4.30-5.90); RDW 13.2 % (11.5-15.5); WBC 11.5 k/uL (3.8-10.6)
[2018-01-15 12:56] LABS: ALT 58 U/L (21-72); AST 44 U/L (17-59); Albumin 4.4 g/dL (3.5-5.0); Alkaline Phosphatase 44 U/L (38-126); Anion Gap 9 mmol/L; Blood Urea Nitrogen 12 mg/dL (9-20); Calcium 9.4 mg/dL (8.4-10.2); Carbon Dioxide 23 mmol/L (22-30); Chloride 109 mmol/L (98-107); Glucose 102 mg/dL (74-99); Magnesium 1.8 mg/dL (1.6-2.3); Potassium 4.4 mmol/L (3.5-5.1); Sodium 141 mmol/L (137-145); Total Bilirubin 0.7 mg/dL (0.2-1.3); Total Protein 7.1 g/dL (6.3-8.2)
[2018-01-15 12:58] LABS: INR 1.1 (<1.2); Partial Thromboplastin Time 25.1 sec (22.0-30.0); Prothrombin Time 10.9 sec (9.0-12.0)
[2018-01-15 13:03] LABS: D-Dimer 1.34 mg/L FEU (<0.60)
--- NOTE | 2018-01-15 13:08 | XR ---
EXAMINATION TYPE: XR chest 2V DATE OF EXAM: 01/15/2018 COMPARISON: Chest x-ray April 02, 2017. HISTORY: Chest pain. TECHNIQUE: Frontal and lateral views of the chest are obtained. FINDINGS: Post CABG changes with mediastinal clips and sternal wires is redemonstrated. There is some chronic parenchymal change without suspicious new focal air space opacity, pleural effusion, or pneu mothorax seen. The cardiac silhouette size is stable and upper limits of normal with slightly ectati c thoracic aorta. The osseous structures are intact. IMPRESSION: Chronic changes without acute pulmonary process identified currently.
[2018-01-15 13:17] LABS: Creatine Kinase 82 U/L (55-170)
[2018-01-15 13:30] LABS: Creatine Kinase MB 1.9 ng/mL (0.0-2.4); Troponin I <0.012 ng/mL (0.000-0.034)
--- NOTE | 2018-01-15 14:13 | CT ---
EXAMINATION TYPE: CT angio chest DATE OF EXAM: 01/15/2018 COMPARISON: CT abdomen dated 07/20/2016 HISTORY: CHEST TIGHTNESS AND SOB CT DLP: 512.7 mGycm. Automated Exposure Control for Dose Reduction was Utilized. CONTRAST: CTA scan of the thorax is performed with IV Contrast, patient injected with 70 mL of Isovue 370, pulm onary embolism protocol. MIP Images are created on CT scanner and reviewed. FINDINGS: LUNGS: There is mild background centrilobular emphysema. Minimal subsegmental dependent atelectasis i s seen. The lungs are grossly clear, there is no focal consolidation. Probable intrafissural lymph node is seen along the lingula on series 5 image 63 measuring 6 mm. There is no pleural effusion or p neumothorax seen. The tracheobronchial tree is patent. MEDIASTINUM: There is satisfactory enhancement of the pulmonary artery and its branches, there is no CT evidence for pulmonary embolism. There are no greater than 1 cm hilar or mediastinal lymph nodes. Post CABG changes are noted. Ascending thoracic aorta and main pulmonary artery are within normal li mits size. Cardiomegaly is present without pericardial effusion. OTHER: There is partial visualization of similar-appearing enlarged periportal and peripancreatic lym ph nodes with the largest adjacent to the pancreatic body on series 4 image 128. No pancreatic ductal dilatation is noted. Surgical absence of the gallbladder and postsurgical changes of the small bowel as well as of the ventral abdomen are noted. Multilevel mild degenerative changes of the thoracic sp ine are present. IMPRESSION: 1. No evidence of pulmonary embolus. 2. Mild centrilobular background emphysema and subsegmental atelectasis. 3. Few enlarged and prominent upper abdominal lymph nodes, similar to the prior of 2017. These are n onspecific and surveillance could be performed.
[2018-01-15] MEDS ORDERED: NITROGLYCERIN SL TABS 0.4 MG TAB SUBLINGUAL PRN (15:54)
[2018-01-15] MEDS ORDERED: HEPARIN SODIUM,PORCINE 5,000 UNIT/ML 1 ML VIAL IV ONE (15:54)
[2018-01-15] MEDS ORDERED: MECLIZINE 25 MG TAB PO PRN (15:56)
[2018-01-15] MEDS ORDERED: valACYclovir HCL 1,000 MG TABLET PO PRN (15:56)
[2018-01-15] MEDS ORDERED: HEPARIN SOD,PORK IN 0.45% NACL 25,000 UNIT in 0.45% NACL 1 500ML.BAG IV SCH (16:00)
[2018-01-15] MEDS ORDERED: SODIUM CHLORIDE 0.9% 1,000 ML IV SCH (16:00)
[2018-01-15 17:14] VITALS: BMI 31.3
[2018-01-15] MEDS: METOPROLOL TARTRATE 25 MG TAB PO SCH (18:23)
[2018-01-15] MEDS: NITROGLYCERIN OINT 1 INCH/GM PACKET TOPICAL SCH (18:23)
[2018-01-15] MEDS ORDERED: ACETAMINOPHEN TAB 325 MG TAB PO PRN (18:44)
[2018-01-15 19:05] LABS: Creatine Kinase 65 U/L (55-170)
[2018-01-15 19:15] LABS: Troponin I <0.012 ng/mL (0.000-0.034)
[2018-01-15] MEDS: FERROUS SULFATE 325 MG TAB PO SCH (20:11)
[2018-01-15] MEDS ORDERED: CRESTOR 40 MG PO SCH (21:00)
[2018-01-15] MEDS ORDERED: EZETIMIBE 10 MG TAB PO SCH (21:00)
[2018-01-15] MEDS ORDERED: FAMOTIDINE 20 MG TAB PO STA (22:57)
[2018-01-16] MEDS: NITROGLYCERIN OINT 1 INCH/GM PACKET TOPICAL SCH ×2 (00:15→05:23)
[2018-01-16 01:09] LABS: Creatine Kinase MB 1.6 ng/mL (0.0-2.4); Troponin I 0.017 ng/mL (0.000-0.034)
[2018-01-16 07:49] VITALS: RESP 18
[2018-01-16 08:14] LABS: Cholesterol 91 mg/dL (<200); HDL Cholesterol 41 mg/dL (40-60); LDL Cholesterol,Calculated 35 mg/dL (0-99); Triglycerides 75 mg/dL (<150)
[2018-01-16] MEDS ORDERED: AMINOPHYLLINE 500 MG/20 ML VIAL IV PRN (08:21)
[2018-01-16] MEDS ORDERED: REGADENOSON 0.4 MG/5 ML SYRINGE IV ONE (08:21)
[2018-01-16] MEDS ORDERED: FAMOTIDINE 20 MG TAB PO SCH ×3 (09:00)
[2018-01-16] MEDS ORDERED: ALLOPURINOL 100 MG TAB PO SCH (09:00)
[2018-01-16] MEDS ORDERED: SENNOSIDES 8.6 MG TAB PO SCH (09:00)
[2018-01-16] MEDS ORDERED: ASPIRIN 325 MG TAB PO SCH (09:00)
[2018-01-16] MEDS ORDERED: LISINOPRIL 20 MG TAB PO SCH ×2 (09:00→21:00)
[2018-01-16] MEDS ORDERED: ATORVASTATIN 80 MG TAB PO SCH (09:00)
--- NOTE | 2018-01-16 09:22 | ECHOF ---
Referral Reason:cp MEASUREMENTS -------- HEIGHT: 170.2 cm WEIGHT: 90.7 kg BP: RVIDd: 3.5 cm (< 3.3) IVSd: 1.3 cm (0.6 - 1.1) LVIDd: 5.2 cm (3.9 - 5.3) LVPWd: 1.2 cm (0.6 - 1.1) IVSs: 1.7 cm LVIDs: 4.6 cm LVPWs: 1.0 cm LA Diam: 4.4 cm (2.7 - 3.8) LAESV Index (A-L): 46.15 ml/m Ao Diam: 3.6 cm (2.0 - 3.7) AV Cusp: 2.2 cm (1.5 - 2.6) LA Diam: 4.5 cm (2.7 - 3.8) MV EXCURSION: 21.866 mm (> 18.000) MV EF SLOPE: 141 mm/s (70 - 150) EPSS: 0.5 cm MV E Yonathan: 0.75 m/s MV DecT: 157 ms MV A Yonathan: 0.71 m/s MV E/A Ratio: 1.06 RAP: 5.00 mmHg RVSP: 14.99 mmHg FINDINGS -------- Sinus rhythm. This was a techncally difficult study with suboptimal views, , Lumason utilized for enhancement of im ages. The left ventricular size is normal. There is mild concentric left ventricular hypertrophy. Overa ll left ventricular systolic function is mildly impaired with, an EF between 45 - 50 %. Apical sept um LV wall motion is hypokinetic. Septal Hypokinesis The right ventricle is normal in size. The left atrium is moderately dilated. LA is severely dilated >40 ml/m2 The right atrial size is normal. There is mild aortic valve sclerosis. There is no evidence of aortic regurgitation. Mild mitral annular calcification present. Mild mitral regurgitation is present. Mild tricuspid regurgitation present. There is no evidence of pulmonary hypertension. The right v entricular systolic pressure, as measured by Doppler, is 14.99mmHg. There is no pulmonic regurgitation present. The aortic root size is normal. There is no pericardial effusion. CONCLUSIONS -------- 1. This was a techncally difficult study with suboptimal views, , Lumason utilized for enhancement of images. 2. There is mild concentric left ventricular hypertrophy. 3. Overall left ventricular systolic function is mildly impaired with, an EF between 45 - 50 %. 4. Apical septum LV wall motion is hypokinetic. 5. Septal Hypokinesis 6. The right ventricle is normal in size. 7. The left atrium is moderately dilated. 8. LA is severely dilated >40 ml/m2 9. The right atrial size is normal. 10. There is mild aortic valve sclerosis. 11. Mild mitral annular calcification present. 12. Mild mitral regurgitation is present. 13. Mild tricuspid regurgitation present. 14. There is no evidence of pulmonary hypertension. 15. The right ventricular systolic pressure, as measured by Doppler, is 14.99mmHg. 16. There is no pulmonic regurgitation present. 17. The aortic root size is normal. 18. There is no pericardial effusion. SCHEDULING ADMINISTRATOR: Carmen Clancy RDCS
--- NOTE | 2018-01-16 09:58 | P.CRDCN ---
History of Present Illness History of present illness: Mr. Wyatt is a pleasant 62-year-old male past medical history significant for coronary artery disease s/p bypass grafting, gastroesophageal reflux disease, dyslipidemia and hypertension. He follows with Dr. Krishna in the office. We've been asked to see him in consultation for complaints of chest pain. Patient with history of bypass grafting MICHAUD to LAD, SVG to OM, and SVG to RCA. He also underwent stenting of the distal LAD through the MICHAUD and SVG to the circumflex. Most recent cardiac catheterization 2015. 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 This persisted for a couple of hours. At that time he decided to leave work early and come to the hospital for evaluation. Once arriving here he was given sublingual nitroglycerin which seemed to subside his chest discomfort, but cause a headache. He has been chest pain-free since that time. He denies associated dizziness, palpitations or vomiting. No radiation of the pain to the arm, back, neck or jaw. He does complain of some lower abdominal discomfort this morning. EKG reveals sinus mechanism with left axis deviation no acute ST or T wave abnormalities noted. Chest x-ray is negative for an acute cardiopulmonary process. CTA negative for PE, normal aorta noted. Laboratory data reviewed, WBC 11.5, hemoglobin 15.7, platelets 220, d-dimer 1.34 , sodium 134, potassium 4.4, magnesium 1.8, creatinine 0.7, cardiac enzymes negative 3, LDL 35 and HDL 41. Current cardiac medications include Crestor 40 mg daily, Lopressor 25 mg twice a day, Zestril 20 mg daily, Saturday 10 mg and aspirin 81 mg daily. He also takes Pepcid, Valtrex, Antivert, Pepcid and allopurinol. Most recent echocardiogram performed 2015 reveals preserved left ventricular systolic function with ejection fraction 50-55%, mild pulmonary hypertension RVSP 38.76 mmHg, mild TR, mild aortic valve sclerosis with no stenosis, severely enlarged right ventricle and moderately dilated left atrium. Most recent cardiac catheterization performed January 2016 revealed a patent SVG to RCA, patent MICHAUD to LAD, occluded SVG to left circumflex and occluded left and right coronary system unchanged from previous cath. At that time he underwent an aspiration thrombectomy from the SVG into the left circumflex as well as a successful stenting of the distal anastomosis of the SVG and of left circumflex. Review of Systems At the time of my exam: CONSTITUTIONAL: Denies fever. Denies chills. EYES: Denies blurred vision. Denies vision changes. Denies eye pain. EARS, NOSE, MOUTH & THROAT: Denies headache. Denies sore throat. Denies ear pain. CARDIOVASCULAR: Denies chest pain. Denies shortness of breath. Denies orthopnea. Denies PND. Denies palpitations. RESPIRATORY: Denies cough. GASTROINTESTINAL: Complains of mild lower abdominal pain. Denies diarrhea. Denies constipation. Denies nausea. Denies vomiting. MUSCULOSKELETAL: Denies myalgias. INTEGUMENTARY: Denies pruitis. Denies rash. NEUROLOGIC: Denies numbness. Denies tingling. Denies weakness. PSYCHIATRIC: Denies anxiety. Denies depression. ENDOCRINE: Denies fatigue. Denies weight change. Denies polydipsia. Denies polyurina. GENITOURINARY: Denies burning, hematuria or urgency with micturation. HEMATOLOGIC: Denies history of anemia. Denies bleeding. Past Medical History Past Medical History: Coronary Artery Disease (CAD), GERD/Reflux, Hyperlipidemia , Hypertension, Myocardial Infarction ([place]), Osteoarthritis (OA) Additional Past Medical History / Comment(s): States "coded" during bowel prep for colonoscopy 06/2015, anemia, hiatal hernia, occ irregular heartbeat, gout, hx of low sodium., low iron (received iron transfusions), genital herpes., incisional hernia- states occasional vomiting. per patient "abdominal aortic aneurysm" Last Myocardial Infarction Date:: 2015 History of Any Multi-Drug Resistant Organisms: None Reported Past Surgical History: Adenoidectomy, Appendectomy, Cholecystectomy, Coronary Bypass/CABG, Heart Catheterization With Stent, Tonsillectomy Additional Past Surgical History / Comment(s): total 4 stents, CABG 1994 3 vessel, surgery on rt eye(hit in eyeball with frisbe), Endo capsule, EGD, Colonoscopy Past Anesthesia/Blood Transfusion Reactions: Previous Problems w/ Anesthesia, Blood Transfusion Reaction, Motion Sickness Additional Past Anesthesia/Blood Transfusion Reaction / Comment(s): Hallucinations with last anesthesia, "felt funny' when getting last transfusion. Date of Last Stent Placement:: 2015 Past Psychological History: No Psychological Hx Reported Additional Psychological History / Comment(s): . Smoking Status: Former smoker Past Alcohol Use History: Rare Additional Past Alcohol Use History / Comment(s): QUIT 1997 HAD BEEN UP TO 2.5 PPD, started 1972-smoked for 25 yrs Past Drug Use History: None Reported - Past Family History Mother Family Medical History: Coronary Artery Disease (CAD), Hypertension Father Family Medical History: CVA/TIA Brother(s) Family Medical History: No Reported History Sister(s) Family Medical History: Cancer, Thyroid Disorder Additional Family Medical History / Comment(s): THYROID CANCER Son(s) Family Medical History: Cancer Daughter(s) Family Medical History: No Reported History Medications and Allergies Home Medications Medication Instructions Recorded Confirmed Type Allopurinol [Zyloprim] 100 mg PO DAILY 07/28/15 01/15/18 History Nitroglycerin Sl Tabs [Nitrostat] 0.4 mg SUBLINGUAL Q5M PRN #25 tab 08/02/1507/04 Rx Rosuvastatin Calcium [Crestor] 40 mg PO DAILY #30 tab 01/20/16 01/15/18 Rx Ezetimibe [Zetia] 10 mg PO HS 07/06/16 01/15/18 History Famotidine [Pepcid] 20 mg PO DAILY 07/06/16 01/15/18 History Ferrous Sulfate [Feosol] 325 mg PO BID 07/06/16 01/15/18 History Aspirin [Adult Low Dose Aspirin EC] 81 mg PO DAILY 03/27/17 01/15/18 History Sennosides [Senna] 8.6 mg PO DAILY 03/27/17 01/15/18 History valACYclovir [Valtrex] 1,000 mg PO Q12HR PRN 03/31/17 01/15/18 History Lisinopril [Zestril] 20 mg PO DAILY tab 04/02/17 01/15/18 Rx Meclizine [Antivert] 25 mg PO Q8HR PRN #30 tab 06/09/17 01/15/18 Rx Famotidine [Pepcid] 20 mg PO BID 01/15/18 01/15/18 History Metoprolol Tartrate [Lopressor] 25 mg PO BID-W/MEALS 01/15/18 01/15/18 History Allergies Allergy/AdvReac Type Severity Reaction Status Date / Time codeine Allergy makes Verified 01/15/18 12:50 headache worse egg yolk Allergy stomach Verified 01/15/18 12:50 ache atorvastatin calcium AdvReac Severe Abdominal Verified 01/15/18 12:50 [From Lipitor] Pain Physical Exam Vitals: Vital Signs Temp Pulse Pulse Resp BP BP Pulse Ox 01/16/18 07:48 98.5 F 55 L 18 162/83 96 01/16/18 04:00 16 01/16/18 03:30 97.9 F 56 L 16 144/70 94 L 01/16/18 00:00 16 01/15/18 23:15 98.2 F 55 L 16 161/87 96 01/15/18 20:00 16 01/15/18 18:50 98.4 F 63 16 173/83 95 01/15/18 18:21 169/84 01/15/18 17:27 61 18 01/15/18 16:40 98.5 F 62 61 18 154/78 173/82 97 01/15/18 14:06 60 18 159/84 98 01/15/18 13:30 58 L 18 150/80 98 01/15/18 12:16 98.3 F 64 16 177/92 96 Intake and Output 01/15/18 01/16/18 01/16/18 22:59 06:59 14:59 Intake Total 636 165.917 Balance 636 165.917 Intake: Intake, IV Titration 165.917 Amount Heparin Sod,Pork in 0.45% 165.917 NaCl 25,000 unit In 0.45 % NaCl 1 500ml.bag @ 11 UNITS/KG/HR 19.95 mls/hr IV .Q24H [facility] Rx#: [id number] Oral 636 Other: Voiding Method Toilet Toilet # Voids 1 1 Weight 90.718 kg Blood pressure 162/83 heart rate 55 afebrile maintaining oxygen saturation on room air GENERAL: This is a 62-year-old male in no apparent distress at the time of my examination. HEENT: Head is atraumatic, normocephalic. Pupils are equal, round. Sclerae anicteric. Conjunctivae are clear. Mucous membranes of the mouth are moist. Neck is supple. There is no jugular venous distention. No carotid bruit is heard. LUNGS: Clear to auscultation no wheezes, rales or rhonchi. No chest wall tenderness is noted on palpation or with deep breathing. HEART: Regular rate and rhythm without murmurs, rubs or gallops. S1 and S2 heard. ABDOMEN: Soft, nontender. Bowel sounds are heard. No organomegaly noted. EXTREMITIES: No evidence of peripheral edema and no calf tenderness noted. VASCULAR: Radial and dorsalis pedis pulses palpated, no evidence of clubbing. NEUROLOGIC: Patient is awake, alert and oriented x3. Results 01/15/18 12:30 01/15/18 12:30 Cardiac Enzymes 01/15/18 01/15/18 01/15/18 Range/Units 12:30 12:30 18:28 AST 44 (17-59) U/L CK-MB (CK-2) 1.9 2.0 (0.0-2.4) ng/mL Troponin I <0.012 <0.012 (0.000-0.034) ng/mL 01/16/18 Range/Units 00:07 AST (17-59) U/L CK-MB (CK-2) 1.6 (0.0-2.4) ng/mL Troponin I 0.017 (0.000-0.034) ng/mL Coagulation 01/15/18 01/16/18 01/16/18 Range/Units 12:30 00:07 06:47 PT 10.9 (9.0-12.0) sec APTT 25.1 38.2 H 55.3 H (22.0-30.0) sec CBC 01/15/18 Range/Units 12:30 WBC 11.5 H (3.8-10.6) k/uL RBC 5.08 (4.30-5.90) m/uL Hgb 15.7 (13.0-17.5) gm/dL Hct 48.2 (39.0-53.0) % Plt Count 220 (150-450) k/uL Comprehensive Metabolic Panel 01/15/18 Range/Units 12:30 Sodium 141 (137-145) mmol/L Potassium 4.4 (3.5-5.1) mmol/L Chloride 109 H (98-107) mmol/L Carbon Dioxide 23 (22-30) mmol/L BUN 12 (9-20) mg/dL Creatinine 0.70 (0.66-1.25) mg/dL Glucose 102 H (74-99) mg/dL Calcium 9.4 (8.4-10.2) mg/dL AST 44 (17-59) U/L ALT 58 (21-72) U/L Alkaline Phosphatase 44 (38-126) U/L Total Protein 7.1 (6.3-8.2) g/dL Albumin 4.4 (3.5-5.0) g/dL Current Medications Generic Name Dose Route Start Last Admin Trade Name Freq PRN Reason Stop Dose Admin Acetaminophen 650 mg 01/15/18 18:44 01/15/18 18:59 Tylenol Tab PO 650 mg Q6HR PRN Administration Fever and/ or Pain Allopurinol 100 mg 01/16/18 09:00 Zyloprim PO DAILY [facility] Aspirin 325 mg 01/16/18 09:00 Aspirin PO DAILY [facility] Ezetimibe 10 mg 01/15/18 21:00 01/15/18 20:11 Zetia PO 10 mg HS MARY KATE Administration Famotidine 20 mg 01/16/18 09:00 Pepcid PO BID MARY KATE Ferrous Sulfate 325 mg 01/15/18 21:00 01/15/18 20:11 Feosol PO 325 mg BID MARY KATE Administration Heparin Sodium/Sodium Chloride 500 mls @ 19.95 mls/hr 01/15/18 16:00 00:55 25,000 unit/ Sodium Chloride IV 14.02 units/kg/hr .Q24H MARY KATE 25.43 mls/hr Titration Protocol 11 UNITS/KG/HR Sodium Chloride 1,000 mls @ 20 mls/hr 01/15/18 16:00 01/15/18 16:29 Saline 0.9% IV 20 mls/hr .Q24H MARY KATE Administration Lisinopril 20 mg 01/16/18 09:00 Zestril PO DAILY MARY KATE Meclizine HCl 25 mg 01/15/18 15:56 Antivert PO Q8HR PRN Vertigo Metoprolol Tartrate 25 mg 01/15/18 17:30 01/15/18 18:23 Lopressor PO 25 mg BID-W/MEALS MARY KATE Administration Nitroglycerin 1 inch 01/15/18 18:00 01/16/18 05:23 Nitro-Bid Oint TOPICAL Not Given Q6HR [facility] Nitroglycerin 0.4 mg 01/15/18 15:54 Nitrostat SUBLINGUAL Q5M PRN Chest Pain Non-Formulary Medication 40 mg 01/15/18 21:00 01/15/18 20:11 Crestor PO Not Given HS [facility] Senna 8.6 mg 01/16/18 09:00 Senokot PO DAILY [facility] Valacyclovir HCl 1,000 mg 01/15/18 15:56 Valtrex PO Q12HR PRN Skin Irritation Intake and Output 01/15/18 01/16/18 01/16/18 22:59 06:59 14:59 Intake Total 636 165.917 Balance 636 165.917 Intake: Intake, IV Titration 165.917 Amount Heparin Sod,Pork in 0.45% 165.917 NaCl 25,000 unit In 0.45 % NaCl 1 500ml.bag @ 11 UNITS/KG/HR 19.95 mls/hr IV .Q24H [facility] Rx#: [id number] Oral 636 Other: Voiding Method Toilet Toilet # Voids 1 1 Weight 90.718 kg 01/15/18 12:30 01/15/18 12:30 Assessment and Plan Assessment: ASSESSMENT Chest pain, atypical. An acute coronary event has been ruled out with no EKG evidence of acute ischemia and negative cardiac enzymes. History of coronary artery disease status post bypass grafting and subsequent angioplasty Hypertension Dyslipidemia, controlled on rosuvastatin and diarrhea. PLAN Obtain 2-D echocardiogram and Doppler study to assess cardiac structure and function. Perform Cardiolite stress test to assess for stress-induced reversible cardiac ischemia. Increase lisinopril to 20 mg BID. If stress test is normal he is stable from a cardiac perspective. Thank you kindly for this consultation. The above impression and plan of care have been discussed and directed by the signing physician. Shanthi Maier, nurse practitioner, acting as scribe for signing physician.
--- NOTE | 2018-01-16 11:01 | EST ---
EXERCISE STRESS AGE: 62 SEX: M HT: 67" WT: 200 PROTOCOL: Cardiolite Bry Stress Test STAGE: 2 DURATION OF EXERCISE: 6:00 HEART RATE REST: 71 BLOOD PRESSURE REST: 159/80 MAXIMUM HEART RATE ACHIEVED: 138 MAXIMUM BLOOD PRESSURE: 200/97 85% MPHR: 135 100% MPHR: 159 METS: 7.3 INDICATIONS: Chest pain. CLINICAL INFORMATION: Baseline EKG shows sinus rhythm with poor R-wave progression. Patient exercised on Bry protocol for a total of 6 minutes achieving 7 METS, 87% of predicted maximal heart rate without chest pain. At peak exercise, frequent PVCs and [address]- segment depression noted. CONCLUSION: 1. Average exercise tolerance. 2. Abnormal stress test by EKG criteria. 3. Cardiolite portion of the stress test will be reported separately. MMODL / IJN: [id number] /
[2018-01-16] MEDS: METOPROLOL TARTRATE 25 MG TAB PO SCH (11:12)
[2018-01-16] MEDS: FERROUS SULFATE 325 MG TAB PO SCH (11:12)
[2018-01-16 11:36] VITALS: BP 146/76; PULSE 60; TEMP 98.4
--- NOTE | 2018-01-16 11:40 | NM ---
EXAMINATION TYPE: NM stress cardiolite complete DATE OF EXAM: 01/16/2018 COMPARISON: 03/09/2011 HISTORY: Chest pain TECHNIQUE: After the intravenous administration of 10.9 mCi Tc 99m Sestamibi - Rest images obtained 45 minutes post injection. The patient exercised using a GRETA protocol and 1 minute prior to peak exercise was injected with 26.8 mCi Tc 99m Sestamibi - Stress images obtained 30 minutes post injecti on. FINDINGS: There is a defect along the distal anterior wall on the stress images. The rest imaging has a defect along the anterior wall which may be larger than the stress images. Gated wall motion is global hypokinesia. Some dyskinesia of the septal wall is evident. Some dyskines ia of the lateral wall near the apex is present. The ejection fraction is low at 33%. Normal greater than 50%. IMPRESSION: 1. Fixed defect along the distal anterior wall. Prior infarction be considered. Additional diminished radiotracer on resting and stress images may be near the cardiac base lateral wall. 2. Dyskinesia lateral and septal koenig. 3. Low ejection fraction of 33%. 4. Stress-induced ischemic change is not identified.
--- NOTE | 2018-01-16 12:27 | P.HPIM ---
History of Present Illness H&P Date: 01/16/18 Chief Complaint: chest pain 62-year-old male who presented to the emergency room with a chief complaint of chest pain. The patient states his chest pain began yesterday when he was at work and was unloading heavy cases of beverages. He states the pain was in the left side of his chest and he felt like it was going to "explode ". The patient stated he had mild shortness of breath. He did report nausea but denied emesis. He also stated he was diaphoretic. the patient is a history of coronary artery disease with previous stent placement 4 and coronary artery bypass surgery. He also has a history of gastroesophageal reflux disease, hyperlipidemia, hypertension, and osteoarthritis. chest x-ray was performed which was negative for an acute process. Patient's d-dimer was elevated and he underwent a CT of the chest which was negative for a pulmonary embolus. His troponins have been negative. he was admitted to the observation unit and cardiology was consulted for further evaluation. Review of Systems Those systems with pertinent positive or pertinent negative responses have been documented in the HPI Past Medical History Past Medical History: Coronary Artery Disease (CAD), GERD/Reflux, Hyperlipidemia , Hypertension, Myocardial Infarction ([place]), Osteoarthritis (OA) Additional Past Medical History / Comment(s): States "coded" during bowel prep for colonoscopy 06/2015, anemia, hiatal hernia, occ irregular heartbeat, gout, hx of low sodium., low iron (received iron transfusions), genital herpes., incisional hernia- states occasional vomiting. per patient "abdominal aortic aneurysm" Last Myocardial Infarction Date:: 2015 History of Any Multi-Drug Resistant Organisms: None Reported Past Surgical History: Adenoidectomy, Appendectomy, Cholecystectomy, Coronary Bypass/CABG, Heart Catheterization With Stent, Tonsillectomy Additional Past Surgical History / Comment(s): total 4 stents, CABG 1994 3 vessel, surgery on rt eye(hit in eyeball with frisbe), Endo capsule, EGD, Colonoscopy Past Anesthesia/Blood Transfusion Reactions: Previous Problems w/ Anesthesia, Blood Transfusion Reaction, Motion Sickness Additional Past Anesthesia/Blood Transfusion Reaction / Comment(s): Hallucinations with last anesthesia, "felt funny' when getting last transfusion. Date of Last Stent Placement:: 2015 Past Psychological History: No Psychological Hx Reported Additional Psychological History / Comment(s): . Smoking Status: Former smoker Past Alcohol Use History: Rare Additional Past Alcohol Use History / Comment(s): QUIT 1997 HAD BEEN UP TO 2.5 PPD, started 1972-smoked for 25 yrs Past Drug Use History: None Reported - Past Family History Mother Family Medical History: Coronary Artery Disease (CAD), Hypertension Father Family Medical History: CVA/TIA Brother(s) Family Medical History: No Reported History Sister(s) Family Medical History: Cancer, Thyroid Disorder Additional Family Medical History / Comment(s): THYROID CANCER Son(s) Family Medical History: Cancer Daughter(s) Family Medical History: No Reported History Medications and Allergies Home Medications Medication Instructions Recorded Confirmed Type Allopurinol [Zyloprim] 100 mg PO DAILY 07/28/15 01/15/18 History Nitroglycerin Sl Tabs [Nitrostat] 0.4 mg SUBLINGUAL Q5M PRN #25 tab 08/02/1507/04 Rx Rosuvastatin Calcium [Crestor] 40 mg PO DAILY #30 tab 01/20/16 01/15/18 Rx Ezetimibe [Zetia] 10 mg PO HS 07/06/16 01/15/18 History Famotidine [Pepcid] 20 mg PO DAILY 07/06/16 01/15/18 History Ferrous Sulfate [Feosol] 325 mg PO BID 07/06/16 01/15/18 History Aspirin [Adult Low Dose Aspirin EC] 81 mg PO DAILY 03/27/17 01/15/18 History Sennosides [Senna] 8.6 mg PO DAILY 03/27/17 01/15/18 History valACYclovir [Valtrex] 1,000 mg PO Q12HR PRN 03/31/17 01/15/18 History Meclizine [Antivert] 25 mg PO Q8HR PRN #30 tab 06/09/17 01/15/18 Rx Metoprolol Tartrate [Lopressor] 25 mg PO BID-W/MEALS 01/15/18 01/15/18 History Lisinopril [Zestril] 20 mg PO BID #60 tab 01/16/18 Rx Allergies Allergy/AdvReac Type Severity Reaction Status Date / Time codeine Allergy makes Verified 01/15/18 12:50 headache worse egg yolk Allergy stomach Verified 01/15/18 12:50 ache atorvastatin calcium AdvReac Severe Abdominal Verified 01/15/18 12:50 [From Lipitor] Pain Physical Exam Vitals: Vital Signs Temp Pulse Pulse Resp BP BP BP 01/16/18 11:34 98.4 F 60 18 146/76 01/16/18 08:00 55 L 18 01/16/18 07:48 98.5 F 55 L 18 162/83 01/16/18 04:00 16 01/16/18 03:30 97.9 F 56 L 16 144/70 01/16/18 00:00 16 01/15/18 23:15 98.2 F 55 L 16 161/87 01/15/18 20:00 16 01/15/18 18:50 98.4 F 63 16 173/83 01/15/18 18:21 169/84 01/15/18 17:27 61 18 01/15/18 16:40 98.5 F 62 61 18 154/78 173/82 01/15/18 14:06 60 18 159/84 01/15/18 13:30 58 L 18 150/80 Pulse Ox 01/16/18 11:34 95 01/16/18 08:00 01/16/18 07:48 96 01/16/18 04:00 01/16/18 03:30 94 L 01/16/18 00:00 01/15/18 23:15 96 01/15/18 20:00 01/15/18 18:50 95 01/15/18 18:21 01/15/18 17:27 01/15/18 16:40 97 01/15/18 14:06 98 01/15/18 13:30 98 Intake and Output 01/15/18 01/16/18 01/16/18 22:59 06:59 14:59 Intake Total 636 165.917 Balance 636 165.917 Intake: Intake, IV Titration 165.917 Amount Heparin Sod,Pork in 0.45% 165.917 NaCl 25,000 unit In 0.45 % NaCl 1 500ml.bag @ 11 UNITS/KG/HR 19.95 mls/hr IV .Q24H [facility] Rx#: [id number] Oral 636 Other: Voiding Method Toilet Toilet Toilet # Voids 1 1 Weight 90.718 kg 90.718 kg GENERAL: This is a 62-year-old male in no apparent distress at the time of examination. Pleasant and cooperative. HEENT: Head is atraumatic, normocephalic. Pupils are equal, round, and reactive to light. Sclerae anicteric. Conjunctivae are clear. Mucus membranes of the mouth are moist. Neck is supple. RESPIRATORY: Clear to ausculation. No wheezes, rales, or rhonchi. No use of accessory muscles. Patient maintaining oxygen saturation greater than 92%. No chest wall tenderness is noted on palpation or with deep breathing. CARDIOVASCULAR: Regular rate and rhythm. S1 and S2 noted. No systolic or diastolic murmur auscultated. No JVD noted. No S3 or S4 noted. GASTROINTESTINAL: No distention noted. Abdomen soft and round. Normal active bowel sounds auscultated x 4 quadrants. No pain or tenderness noted upon palpation. INTEGUMENTARY: No cyanosis. No jaundice. No rashes noted. No cellulitis noted. EXTREMITIES: 2+ peripheral pulses. No evidence of peripheral edema. No calf tenderness noted. NEUROLOGIC: Cranial nerves II-XII intact. PSYCHIATRIC: Awake, alert, and oriented X 3. Appropriate affect. Intact judgement and insight. Results CBC & Chem 7: 01/15/18 12:30 01/15/18 12:30 Labs: Abnormal Lab Results - Last 24 Hours (Table) 01/15/18 01/15/18 01/15/18 Range/Units 12:30 12:30 12:30 WBC 11.5 H (3.8-10.6) k/uL Neutrophils # 9.6 H (1.3-7.7) k/uL APTT (22.0-30.0) sec D-Dimer 1.34 H (<0.60) mg/L FEU Chloride 109 H (98-107) mmol/L Glucose 102 H (74-99) mg/dL 01/16/18 01/16/18 Range/Units 00:07 06:47 WBC (3.8-10.6) k/uL Neutrophils # (1.3-7.7) k/uL APTT 38.2 H 55.3 H (22.0-30.0) sec D-Dimer (<0.60) mg/L FEU Chloride (98-107) mmol/L Glucose (74-99) mg/dL Assessment and Plan Plan: ASSESSMENT: Chest pain, present on admission, troponins negative 3, rule out acute coronary syndrome Coronary artery disease with previous stent placement 4 and CABG Hypertension Hyperlipidemia Gastroesophageal reflux disease Obesity: BMI 31.3 Nicotine dependence, in remission, patient quit smoking in 1997 PLAN: lisinopril has been increased to 20 mg twice a day per cardiology. patient to undergo stress test today. Await results Nurse practitioner note has been reviewed by physician. Signing provider agrees with the documented findings, assessment, and plan of care.
--- NOTE | 2018-01-16 12:29 | P.DS ---
Providers Date of admission: 01/15/18 15:59 Expected date of discharge: 01/16/18 Attending physician: Fernando Schilling Consults: 01/15/18 15:54 Consult Physician Urgent Consulting Provider: Trung Cole Consult Reason/Comments: Unstable angina Do you want consulting provider notified?: Yes Primary care physician: [facility] Course: 62-year-old male who presented to the emergency room with a chief complaint of chest pain. The patient states his chest pain began yesterday when he was at work and was unloading heavy cases of beverages. He states the pain was in the left side of his chest and he felt like it was going to "explode ". The patient stated he had mild shortness of breath. He did report nausea but denied emesis. He also stated he was diaphoretic. the patient is a history of coronary artery disease with previous stent placement 4 and coronary artery bypass surgery. He also has a history of gastroesophageal reflux disease, hyperlipidemia, hypertension, and osteoarthritis. chest x-ray was performed which was negative for an acute process. Patient's d-dimer was elevated and he underwent a CT of the chest which was negative for a pulmonary embolus. His troponins have been negative. he was admitted to the observation unit and He was evaluated by cardiology. His blood pressure was elevated and his lisinopril has been increased to 20 mg twice a day per cardiology. He underwent stress testing which was negative for ischemia. He was cleared for discharge from a cardiac standpoint. The patient may be discharged home today and is to follow up with his primary care physician within a week. DISCHARGE DIAGNOSIS: Chest pain, present on admission, troponins negative 3, acute coronary syndrome ruled out, stress test negative Coronary artery disease with previous stent placement 4 and CABG Hypertension Hyperlipidemia Gastroesophageal reflux disease Obesity: BMI 31.3 Nicotine dependence, in remission, patient quit smoking in 1997 Nurse practitioner note has been reviewed by physician. Signing provider agrees with the documented findings, assessment, and plan of care. Patient Condition at Discharge: Stable Plan - Discharge Summary Discharge Rx Participant: No New Discharge Prescriptions: New Lisinopril [Zestril] 20 mg PO BID #60 tab Continue Allopurinol [Zyloprim] 100 mg PO DAILY Nitroglycerin Sl Tabs [Nitrostat] 0.4 mg SUBLINGUAL Q5M PRN #25 tab PRN Reason: Chest Pain Rosuvastatin Calcium [Crestor] 40 mg PO DAILY #30 tab Famotidine [Pepcid] 20 mg PO DAILY Ferrous Sulfate [Feosol] 325 mg PO BID Ezetimibe [Zetia] 10 mg PO HS Aspirin [Adult Low Dose Aspirin EC] 81 mg PO DAILY Sennosides [Senna] 8.6 mg PO DAILY valACYclovir [Valtrex] 1,000 mg PO Q12HR PRN PRN Reason: Skin Irritation Meclizine [Antivert] 25 mg PO Q8HR PRN #30 tab PRN Reason: Vertigo Metoprolol Tartrate [Lopressor] 25 mg PO BID-W/MEALS Discontinued Lisinopril [Zestril] 20 mg PO DAILY tab Famotidine [Pepcid] 20 mg PO BID Discharge Medication List Allopurinol [Zyloprim] 100 mg PO DAILY 07/28/15 [History] Nitroglycerin Sl Tabs [Nitrostat] 0.4 mg SUBLINGUAL Q5M PRN #25 tab 08/02/15 [Rx ] Rosuvastatin Calcium [Crestor] 40 mg PO DAILY #30 tab 01/20/16 [Rx] Ezetimibe [Zetia] 10 mg PO HS 07/06/16 [History] Famotidine [Pepcid] 20 mg PO DAILY 07/06/16 [History] Ferrous Sulfate [Feosol] 325 mg PO BID 07/06/16 [History] Aspirin [Adult Low Dose Aspirin EC] 81 mg PO DAILY 03/27/17 [History] Sennosides [Senna] 8.6 mg PO DAILY 03/27/17 [History] valACYclovir [Valtrex] 1,000 mg PO Q12HR PRN 03/31/17 [History] Meclizine [Antivert] 25 mg PO Q8HR PRN #30 tab 06/09/17 [Rx] Metoprolol Tartrate [Lopressor] 25 mg PO BID-W/MEALS 01/15/18 [History] Lisinopril [Zestril] 20 mg PO BID #60 tab 01/16/18 [Rx] Follow up Appointment(s)/Referral(s): Dilan Krishna MD [STAFF PHYSICIAN] - 2 Weeks Alex Borden Jr, DO [Primary Care Provider] - 1-2 days Discharge Disposition: HOME SELF-CARE
[2018-01-17] MEDS ORDERED: ASPIRIN 81 MG PO SCH (09:00)
== END 2018-01-16 13:21 | disposition home or self-care (01) ==
LOC: EC 12:13 → 3OBS 15:59
PROVIDERS: ADMIT Family Medicine; ATTEND Family Medicine
DX: R07.89 Other chest pain (principal); R00.2 Palpitations; R07.2 Precordial pain; R61 Generalized hyperhidrosis; R06.02 Shortness of breath; R11.0 Nausea; K21.9 Gastro-esophageal reflux disease without esophagitis; E78.5 Hyperlipidemia, unspecified; I10 Essential (primary) hypertension; I25.2 Old myocardial infarction; M19.90 Unspecified osteoarthritis, unspecified site; D64.9 Anemia, unspecified; M10.9 Gout, unspecified; A60.00 Herpesviral infection of urogenital system, unspecified; I49.9 Cardiac arrhythmia, unspecified; I25.810 Atherosclerosis of coronary artery bypass graft(s) without angina pectoris; I71.4 Abdominal aortic aneurysm, without rupture; R51 Headache; R79.89 Other specified abnormal findings of blood chemistry; K43.2 Incisional hernia without obstruction or gangrene; Z87.891 Personal history of nicotine dependence; Z86.74 Personal history of sudden cardiac arrest; Z95.1 Presence of aortocoronary bypass graft; Z95.5 Presence of coronary angioplasty implant and graft; Z79.82 Long term (current) use of aspirin; Z79.899 Other long term (current) drug therapy; Z88.5 Allergy status to narcotic agent; Z88.8 Allergy status to other drugs, medicaments and biological substances; Z91.012 Allergy to eggs; Z90.49 Acquired absence of other specified parts of digestive tract; Z82.3 Family history of stroke; Z80.8 Family history of malignant neoplasm of other organs or systems; Y99.0 Civilian activity done for income or pay; Y92.512 Supermarket, store or market as the place of occurrence of the external cause; Z68.31 Body mass index [BMI] 31.0-31.9, adult; E66.9 Obesity, unspecified
CPT/HCPCS: 99291 ×2; 96365 ×2; 96376 ×2; 96366 ×2; 36415; 93005; 93017; 93306; 85379; 83880; 80061; 80053; 82550 ×2; 82553 ×2; 83735; 84484 ×2; 85025; 85610; 85730 ×2; 71046; 71275; 78452; G0378 ×2; A9500; J1644 ×2; J2785; Q9950; Q9967

== ENCOUNTER → 2018-04-07 | Outpatient (CLI) | payer BC ==
[2018-04-07 09:19] LABS: ALT 53 U/L (21-72); AST 46 U/L (17-59); Cholesterol 87 mg/dL (<200); HDL Cholesterol 34 mg/dL (40-60); LDL Cholesterol,Calculated 29 mg/dL (0-99); Triglycerides 118 mg/dL (<150)
== END | disposition home or self-care (01) ==
LOC: LABWHC1 06:53
PROVIDERS: ATTEND Internal Medicine Interventional Cardiology
DX: E78.2 Mixed hyperlipidemia (principal)
CPT/HCPCS: 36415; 80061; 84450; 84460

== ENCOUNTER 2018-04-09 09:53 | Emergency (ER) | payer BC ==
--- NOTE | 2018-04-09 10:38 | ED ---
General Adult HPI - General Chief complaint: Chest Pain Stated complaint: CHEST PAIN/BACK PAIN Source: patient Mode of arrival: ambulatory Limitations: no limitations - History of Present Illness Initial comments: Dictation was produced using [employer] dictation software. please excuse any grammatical, word or spelling errors. Chief Complaint: 62-year-old male past medical history of coronary artery disease, status post CABG, arthritis, dyslipidemia presents with elevated blood pressure. History of Present Illness: 62-year-old male presents with chief complaint of elevated blood pressure and thoracic back pain. 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 He states that he is pretty stressed out on a regular basis. Patient states that yesterday he was at work when he decided check his blood pressure and found his systolic to be 170s. Patient has history of hypertension. Takes lisinopril and metoprolol for his elevated blood pressure. Patient then checked his blood pressure again today and was found to be high. Patient normally has normal blood pressure. He does report that he has pain to his right upper back. Denies that is worse with movement however does worse with palpation. He called his primary care doctor who instructed him to take an extra metoprolol however patient states his blood pressure still high. The ROS documented in this emergency department record has been reviewed and confirmed by me. Those systems with pertinent positive or negative responses have been documented in the HPI. All other systems are other negative and/or noncontributory. - Related Data Home Medications Medication Instructions Recorded Confirmed Allopurinol [Zyloprim] 100 mg PO DAILY 07/28/15 04/09/18 Ezetimibe [Zetia] 10 mg PO HS 07/06/16 04/09/18 Famotidine [Pepcid] 20 mg PO DAILY 07/06/16 04/09/18 Ferrous Sulfate [Feosol] 325 mg PO BID 07/06/16 04/09/18 Aspirin [Adult Low Dose Aspirin EC] 81 mg PO DAILY 03/27/17 04/09/18 Sennosides [Senna] 8.6 mg PO DAILY 03/27/17 04/09/18 Metoprolol Tartrate [Lopressor] 25 mg PO BID-W/MEALS 01/15/18 04/09/18 Acetaminophen Tab [Tylenol] 650 mg PO Q6HR 04/09/18 04/09/18 Loratadine [Claritin] 10 mg PO DAILY 04/09/18 04/09/18 Previous Rx's Medication Instructions Recorded Nitroglycerin Sl Tabs [Nitrostat] 0.4 mg SUBLINGUAL Q5M PRN #25 tab 08/02/15 Rosuvastatin Calcium [Crestor] 40 mg PO DAILY #30 tab 01/20/16 Lisinopril [Zestril] 20 mg PO BID #60 tab 01/16/18 Allergies Allergy/AdvReac Type Severity Reaction Status Date / Time codeine Allergy makes Verified 04/09/18 10:26 headache worse egg yolk Allergy stomach Verified 04/09/18 10:26 ache atorvastatin calcium AdvReac Severe Abdominal Verified 04/09/18 10:26 [From Lipitor] Pain Review of Systems ROS Statement: Those systems with pertinent positive or pertinent negative responses have been documented in the HPI. ROS Other: All systems not noted in ROS Statement are negative. Past Medical History Past Medical History: Coronary Artery Disease (CAD), GERD/Reflux, Hyperlipidemia , Hypertension, Myocardial Infarction ([place]), Osteoarthritis (OA) Additional Past Medical History / Comment(s): States "coded" during bowel prep for colonoscopy 06/2015, anemia, hiatal hernia, occ irregular heartbeat, gout, hx of low sodium., low iron (received iron transfusions), genital herpes., incisional hernia- states occasional vomiting. per patient "abdominal aortic aneurysm" Last Myocardial Infarction Date:: 2015 History of Any Multi-Drug Resistant Organisms: None Reported Past Surgical History: Adenoidectomy, Appendectomy, Cholecystectomy, Coronary Bypass/CABG, Heart Catheterization With Stent, Tonsillectomy Additional Past Surgical History / Comment(s): total 4 stents, CABG 1994 3 vessel, surgery on rt eye(hit in eyeball with frisbe), Endo capsule, EGD, Colonoscopy Past Anesthesia/Blood Transfusion Reactions: Previous Problems w/ Anesthesia, Blood Transfusion Reaction, Motion Sickness Additional Past Anesthesia/Blood Transfusion Reaction / Comment(s): Hallucinations with last anesthesia, "felt funny' when getting last transfusion. Date of Last Stent Placement:: 2015 Past Psychological History: No Psychological Hx Reported Smoking Status: Former smoker Past Alcohol Use History: Rare Past Drug Use History: None Reported - Past Family History Mother Family Medical History: Coronary Artery Disease (CAD), Hypertension Father Family Medical History: CVA/TIA Brother(s) Family Medical History: No Reported History Sister(s) Family Medical History: Cancer, Thyroid Disorder Additional Family Medical History / Comment(s): THYROID CANCER Son(s) Family Medical History: Cancer Daughter(s) Family Medical History: No Reported History General Exam - General Exam Comments Initial Comments: PHYSICAL EXAM: General Impression: Alert and oriented x3, not in acute distress HEENT: Normocephalic atraumatic, extra-ocular movements intact, pupils equal and reactive to light bilaterally, mucous membranes moist. Cardiovascular: Heart regular rate and rhythm, S1&S2 audible, no murmurs, rubs or gallops Chest: Lungs clear to auscultation bilaterally, no rhonchi, no wheeze, no rales Abdomen: Bowel sounds present, abdomen soft, non-tender, non-distended, no organomegaly Musculoskeletal: Pulses present and equal in all extremities, no peripheral edema, tenderness to palpation over the right posterior lateral thoracic spine to the paraspinal muscle. Motor: Power 5/5 bilaterally, no focal deficits noted Neurological: CN II-XII grossly intact, no focal motor or sensory deficits noted Skin: Intact with no visualized rashes Psych: Normal affect and mood Limitations: no limitations Course Vital Signs 04/09/18 04/09/18 04/09/18 10:00 10:30 10:50 Temperature 98.1 F Pulse Rate 63 59 L 61 Respiratory 18 20 12 Rate Blood Pressure 171/99 164/95 168/142 O2 Sat by Pulse 97 98 97 Oximetry 04/09/18 04/09/18 11:33 12:33 Temperature Pulse Rate 57 L 57 L Respiratory 18 12 Rate Blood Pressure 134/78 149/86 O2 Sat by Pulse 96 97 Oximetry Medical Decision Making - Medical Decision Making ED course: 62-year-old male presents with chief complaint of elevated blood pressure. Vital signs upon arrival are within acceptable limits. Patient has multiple comorbidities. Blood pressure upon arrival was 171/99. Patient has signs of musculoskeletal strain to his upper thoracic back. Patient does not have any alarming symptoms for emergent hypertension. No clinical suspicion of aortic dissection, or other causes of hypertensive emergency/urgency. EKGs benign.Laboratory evaluation obtained per it CBC unremarkable. Coag panel unremarkable. Metabolic panel is unremarkable. Cardiac enzymes are negative. Chest X ray shows no acute processes. Repeat vital signs are obtained with improvement of blood pressure. 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 Patient's pain is reproducible with palpation. Patient's blood pressure is mildly improved. He still to follow-up with his primary care physician upon discharge. Patient understandable agreeable to plan. EKG Interpretation: A 12 lead EKG was obtained. It was interpreted by myself and attending physician. There is a P wave before every QRS complex. Rate is 55. Rhythm is sinus bradycardia, GA interval 170, Q rastafarian 108, QTc 440. QT is not prolonged. No ST segment depression or elevation. Overall, this EKG is unremarkable - Lab Data Result diagrams: 04/09/18 10:50 04/09/18 10:50 Lab Results 04/09/18 04/09/18 04/09/18 Range/Units 10:50 10:50 10:50 WBC 10.0 (3.8-10.6) k/uL RBC 4.92 (4.30-5.90) m/uL Hgb 15.8 (13.0-17.5) gm/dL Hct 47.0 (39.0-53.0) % MCV 95.4 (80.0-100.0) fL MCH 32.1 (25.0-35.0) pg MCHC 33.7 (31.0-37.0) g/dL RDW 13.0 (11.5-15.5) % Plt Count 235 (150-450) k/uL Neutrophils % 80 % Lymphocytes % 13 % Monocytes % 5 % Eosinophils % 1 % Basophils % 0 % Neutrophils # 8.0 H (1.3-7.7) k/uL Lymphocytes # 1.3 (1.0-4.8) k/uL Monocytes # 0.5 (0-1.0) k/uL Eosinophils # 0.1 (0-0.7) k/uL Basophils # 0.0 (0-0.2) k/uL PT (9.0-12.0) sec INR (<1.2) APTT (22.0-30.0) sec Sodium 139 (137-145) mmol/L Potassium 4.8 (3.5-5.1) mmol/L Chloride 106 (98-107) mmol/L Carbon Dioxide 26 (22-30) mmol/L Anion Gap 7 mmol/L BUN 15 (9-20) mg/dL Creatinine 0.81 (0.66-1.25) mg/dL Est GFR (CKD-EPI)AfAm >90 (>60 ml/min/1.73 sqM) Est GFR (CKD-EPI)NonAf >90 (>60 ml/min/1.73 sqM) Glucose 104 H (74-99) mg/dL Calcium 9.8 (8.4-10.2) mg/dL Magnesium 1.9 (1.6-2.3) mg/dL Total Bilirubin 1.0 (0.2-1.3) mg/dL AST 43 (17-59) U/L ALT 53 (21-72) U/L Alkaline Phosphatase 39 (38-126) U/L Total Creatine Kinase 91 (55-170) U/L CK-MB (CK-2) 2.6 H (0.0-2.4) ng/mL CK-MB (CK-2) Rel Index 2.9 Troponin I <0.012 (0.000-0.034) ng/mL Total Protein 7.1 (6.3-8.2) g/dL Albumin 4.1 (3.5-5.0) g/dL 04/09/18 Range/Units 10:50 WBC (3.8-10.6) k/uL RBC (4.30-5.90) m/uL Hgb (13.0-17.5) gm/dL Hct (39.0-53.0) % MCV (80.0-100.0) fL MCH (25.0-35.0) pg MCHC (31.0-37.0) g/dL RDW (11.5-15.5) % Plt Count (150-450) k/uL Neutrophils % % Lymphocytes % % Monocytes % % Eosinophils % % Basophils % % Neutrophils # (1.3-7.7) k/uL Lymphocytes # (1.0-4.8) k/uL Monocytes # (0-1.0) k/uL Eosinophils # (0-0.7) k/uL Basophils # (0-0.2) k/uL PT 11.2 (9.0-12.0) sec INR 1.2 H (<1.2) APTT 25.5 (22.0-30.0) sec Sodium (137-145) mmol/L Potassium (3.5-5.1) mmol/L Chloride (98-107) mmol/L Carbon Dioxide (22-30) mmol/L Anion Gap mmol/L BUN (9-20) mg/dL Creatinine (0.66-1.25) mg/dL Est GFR (CKD-EPI)AfAm (>60 ml/min/1.73 sqM) Est GFR (CKD-EPI)NonAf (>60 ml/min/1.73 sqM) Glucose (74-99) mg/dL Calcium (8.4-10.2) mg/dL Magnesium (1.6-2.3) mg/dL Total Bilirubin (0.2-1.3) mg/dL AST (17-59) U/L ALT (21-72) U/L Alkaline Phosphatase (38-126) U/L Total Creatine Kinase (55-170) U/L CK-MB (CK-2) (0.0-2.4) ng/mL CK-MB (CK-2) Rel Index Troponin I (0.000-0.034) ng/mL Total Protein (6.3-8.2) g/dL Albumin (3.5-5.0) g/dL Disposition Clinical Impression: Hypertension, Back strain Disposition: HOME SELF-CARE Condition: Good Instructions: Hypertension in the Older Adult (ED) Is patient prescribed a controlled substance at d/c from ED?: No Referrals: Fernando Schilling MD [Primary Care Provider] - 1-2 days Time of Disposition: 12:40
[2018-04-09 11:11] LABS: Basophils % (A) 0 %; Eosinophils # (A) 0.1 k/uL (0-0.7); Eosinophils % (A) 1 %; HGB 15.8 gm/dL (13.0-17.5); Lymphocytes # (A) 1.3 k/uL (1.0-4.8); Lymphocytes % (A) 13 %; MCH 32.1 pg (25.0-35.0); MCHC 33.7 g/dL (31.0-37.0); MCV 95.4 fL (80.0-100.0); Mean Platelet Volume 7.7; Monocytes # (A) 0.5 k/uL (0-1.0); Monocytes % (A) 5 %; Neutrophils % (A) 80 %; Platelet Count 235 k/uL (150-450); RBC 4.92 m/uL (4.30-5.90)
[2018-04-09 11:16] LABS: INR 1.2 (<1.2); Partial Thromboplastin Time 25.5 sec (22.0-30.0); Prothrombin Time 11.2 sec (9.0-12.0)
--- NOTE | 2018-04-09 11:25 | XR ---
EXAMINATION TYPE: XR chest 2V DATE OF EXAM: 04/09/2018 COMPARISON: Prior chest x-ray and CT 01/15/2018 HISTORY: Chest pain, hypertension TECHNIQUE: Frontal and lateral views of the chest are obtained. FINDINGS: The patient is post median sternotomy, coronary artery bypass grafts. There are overlying c ardiac leads and tubing. There is no focal air space opacity, pleural effusion, or pneumothorax seen. The cardiac silhouette size is stable and enlarged. The osseous structures are intact. Surgical c lips in the upper abdomen. There is increased AP diameter chest. IMPRESSION: No acute cardiopulmonary process. Emphysema. Cardiomegaly and coronary artery disease.
[2018-04-09 11:30] LABS: ALT 53 U/L (21-72); AST 43 U/L (17-59); Albumin 4.1 g/dL (3.5-5.0); Alkaline Phosphatase 39 U/L (38-126); Anion Gap 7 mmol/L; Blood Urea Nitrogen 15 mg/dL (9-20); Calcium 9.8 mg/dL (8.4-10.2); Carbon Dioxide 26 mmol/L (22-30); Chloride 106 mmol/L (98-107); Glucose 104 mg/dL (74-99); Magnesium 1.9 mg/dL (1.6-2.3); Potassium 4.8 mmol/L (3.5-5.1); Sodium 139 mmol/L (137-145); Total Protein 7.1 g/dL (6.3-8.2)
[2018-04-09 11:37] LABS: Creatine Kinase 91 U/L (55-170)
[2018-04-09 12:31] LABS: Creatine Kinase MB 2.6 ng/mL (0.0-2.4); Troponin I <0.012 ng/mL (0.000-0.034)
[2018-04-09 12:51] VITALS: BP 151/65; PULSE 65; RESP 14; TEMP 98.3
== END 2018-04-09 12:51 | disposition home or self-care (01) ==
LOC: EC 09:53
DX: I10 Essential (primary) hypertension (principal); S29.012A Strain of muscle and tendon of back wall of thorax, initial encounter; I25.10 Atherosclerotic heart disease of native coronary artery without angina pectoris; I25.2 Old myocardial infarction; E78.5 Hyperlipidemia, unspecified; K21.9 Gastro-esophageal reflux disease without esophagitis; Z79.82 Long term (current) use of aspirin; Z79.899 Other long term (current) drug therapy; Z88.5 Allergy status to narcotic agent; Z91.012 Allergy to eggs; Z88.8 Allergy status to other drugs, medicaments and biological substances; Z95.1 Presence of aortocoronary bypass graft; Z87.891 Personal history of nicotine dependence
CPT/HCPCS: 36415; 71046; 80053; 82550; 82553; 83735; 84484; 85025; 85610; 85730; 93005; 99285

== ENCOUNTER → 2019-07-22 | Outpatient (CLI) | payer BC ==
[2019-07-22 07:38] LABS: HCT 50.6 % (39.0-53.0); HGB 16.5 gm/dL (13.0-17.5); MCH 31.3 pg (25.0-35.0); MCHC 32.5 g/dL (31.0-37.0); MCV 96.3 fL (80.0-100.0); Mean Platelet Volume 7.9; Platelet Count 227 k/uL (150-450); RBC 5.26 m/uL (4.30-5.90); RDW 12.8 % (11.5-15.5); WBC 8.4 k/uL (3.8-10.6)
[2019-07-22 07:43] LABS: African American GFR (CKD) >90 (>60 ml/min/1.73 sqM); Anion Gap 7 mmol/L; Blood Urea Nitrogen 11 mg/dL (9-20); Carbon Dioxide 28 mmol/L (22-30); Chloride 107 mmol/L (98-107); Non-African American GFR(CKD) >90 (>60 ml/min/1.73 sqM); Potassium 4.6 mmol/L (3.5-5.1); Sodium 142 mmol/L (137-145)
== END | disposition home or self-care (01) ==
LOC: LABPAT 06:35
PROVIDERS: ATTEND Internal Medicine Interventional Cardiology
DX: Z01.812 Encounter for preprocedural laboratory examination (principal); I25.10 Atherosclerotic heart disease of native coronary artery without angina pectoris
CPT/HCPCS: 36415; 80051; 82565; 84520; 85027

== ENCOUNTER → 2019-07-24 | Day surgery (SDC) | payer BC ==
[2019-07-23 12:12] VITALS: BMI 32.2
[~2019-07-24] MED LIST changes: +ACETAMINOPHEN TAB 325 MG TAB ONE; +ALPRAZolam 0.25 MG TAB PO PRN; +ALPRAZolam 0.5 MG TAB PO PRN; +ASPIRIN 325 MG TAB PO ONE; +HYDROmorphone 1 MG/ML 1 ML SYRINGE IVP ONE; +HYDROmorphone 1 MG/ML 1 ML SYRINGE ONE; +IOPAMIDOL-370 150ML BTL INJ ONE; -LACTATED RINGERS 1,000 ML IV ONE; +LIDOCAINE 1% INJ 10MG/ML (20 ML MDV) ONE; +LIDOCAINE 1% INJ 10MG/ML (20 ML MDV) SQ ONE; +MIDAZOLAM 2 MG/2 ML VIAL IV ONE; +NITROGLYCERIN SL TABS 0.4 MG TAB SUBLINGUAL PRN; +RX INFO: IV CONTRAST WAS GIVEN 1 EACH MISC MISCELLANE PRN; +SODIUM CHLORIDE 0.9% 1,000 ML IV SCH; +SODIUM CHLORIDE 0.9% 1,000 ML in EMPTY BAG 1 BAG IV ONE; -SODIUM CHLORIDE 0.9% 500 ML IV ONE
[2019-07-24 11:25] VITALS: RESP 18; TEMP 97.9
--- NOTE | 2019-07-24 13:55 | CC ---
CARDIAC CATHETERIZATION REPORT DATE OF SERVICE: 07/24/2019 PERFORMING PHYSICIAN: Dilan Krishna MD. PROCEDURE PERFORMED: 1. Selective left and right coronary angiogram. 2. MICHAUD to LAD angiogram. 3. SVG to left circumflex angiogram. 4. SVG to RCA angiogram. 5. Left heart catheterization. INDICATION: This is a 63-year-old gentleman who has extensive ischemic heart disease including coronary artery bypass grafting with known MICHAUD to LAD, SVG to OM, and SVG to RCA, as well as known stenting of the LAD through MICHAUD, stenting of the SVG to LCX, and stenting of the SVG to RCA, as well as multiple comorbid conditions, was diagnosed recently with cardiomyopathy. APPROACH: Right common femoral artery. COMPLICATION: None. LEVEL OF SEDATION: Moderate with sedation length of 22 minutes. PROCEDURE DESCRIPTION: After obtaining an informed consent, the patient was brought to the cardiac labor economics teacher. The right radial artery was cannulated using micropuncture technique, the micropuncture wire passed easily, then I placed a 6-Ukrainian sheath 11 cm at the right common femoral artery. After that, I did perform selective left and right coronary angiogram using JL4 and JR4 catheters. MICHAUD to LAD angiogram was performed using an IM catheter. SVG to left circumflex angiogram and SVG to RCA angiogram performed using the JR4 catheter. Left heart catheterization was performed using pigtail catheter. The procedure was completed without any complication. SELECTIVE CORONARY ANGIOGRAM: 1. The left main is 100% occluded in the mid shaft. 2. The left circumflex is 100% occluded as well. 3. The LAD is 100% occluded in the proximal portion. CORONARY BYPASS ANGIOGRAM: 1. The MICHAUD to LAD is patent. The LAD distal to the MICHAUD anastomosis has a stent which appeared to be patent as well. 2. The SVG to left circumflex is patent. The SVG has a stent and seems to be patent. 3. The SVG to RCA is patent. That SVG also has a stent and seems to be patent. CONCLUSION: 1. Severe triple-vessel coronary artery disease. 2. Patent MICHAUD to LAD. Patent stent in the LAD distal to the anastomosis. 3. Patent SVG to left circumflex. The stent in that SVG is patent as well. 4. Patent SVG to RCA. The stent in that SVG is patent as well. 5. HEMODYNAMICS: The LVEDP was 20 mmHg without significant gradient across the aortic valve. POSTPROCEDURE MANAGEMENT: 1. Maximize medical treatment. 2. Follow up with the patient. YAIR / SAIRA: [id number] /
--- NOTE | 2019-07-24 14:35 | LTR ---
July 24, 2019 Re: Ori Wyatt Dear Dr. Borden: Mr. Ori Wyatt underwent today a heart catheterization which showed patency of all his bypasses. Maximized medical treatment is advised at this point of time. I want to thank you for allowing me to participate in his care and please do not hesitate to call if you have any question or concern. Sincerely, MD YAIR Velazco / SAIRA: [id number] /
[2019-07-24 17:28] VITALS: PULSE 60
[2019-07-24 17:30] VITALS: BP 125/68
== END ==
LOC: CATHCVL 10:19
PROVIDERS: ATTEND Internal Medicine Interventional Cardiology
DX: I25.10 Atherosclerotic heart disease of native coronary artery without angina pectoris (principal); I42.9 Cardiomyopathy, unspecified; I10 Essential (primary) hypertension; I71.4 Abdominal aortic aneurysm, without rupture; E78.00 Pure hypercholesterolemia, unspecified; E78.5 Hyperlipidemia, unspecified; F17.210 Nicotine dependence, cigarettes, uncomplicated; Z79.82 Long term (current) use of aspirin; Z79.899 Other long term (current) drug therapy; Z88.5 Allergy status to narcotic agent; Z88.8 Allergy status to other drugs, medicaments and biological substances; Z95.5 Presence of coronary angioplasty implant and graft; Z95.1 Presence of aortocoronary bypass graft
CPT/HCPCS: 93459; C1760; C1769 ×3; C1894; J2250; J2001; J1170; Q9967; 93458

== ENCOUNTER 2023-03-30 11:47 | Emergency (ER) | payer BC, MEDICARE ==
--- NOTE | 2023-03-30 12:31 | ED ---
Lower Extremity Injury HPI - General Chief Complaint: Extremity Injury, Lower Stated Complaint: Abn labs Time Seen by Provider: 03/30/23 11:51 Source: patient Mode of arrival: ambulatory Limitations: no limitations - History of Present Illness Initial Comments: 67-year-old female presenting with chief complaint of soreness to the back of the right knee. Pain started this morning. No injury or trauma. No swelling to the lower leg. No history of blood clots. No blood thinners. No recent travel or surgery. No chest pain, difficulty breathing, palpitations, numbness, tingling, weakness. - Related Data Home Medications Medication Instructions Recorded Confirmed allopurinoL [Zyloprim] 100 mg PO DAILY 07/28/15 07/24/19 Ezetimibe [Zetia] 10 mg PO HS 07/06/16 07/24/19 Famotidine [Pepcid] 20 mg PO DAILY 07/06/16 07/24/19 Ferrous Sulfate [Feosol] 325 mg PO HS 07/06/16 07/24/19 Aspirin [Adult Low Dose Aspirin EC] 81 mg PO DAILY 03/27/17 07/24/19 Sennosides [Senna] 8.6 mg PO BID 03/27/17 07/24/19 Acetaminophen Tab [Tylenol] 650 mg PO Q6HR 04/09/18 07/24/19 Meclizine [Antivert] 25 mg PO BID PRN 07/23/19 07/24/19 carvediloL [Coreg] 6.25 mg PO BID 07/23/19 07/24/19 Loratadine [Claritin] 10 mg PO HS 07/24/19 07/24/19 Rosuvastatin Calcium [Crestor] 40 mg PO HS 07/24/19 07/24/19 Previous Rx's Medication Instructions Recorded Nitroglycerin Sl Tabs [Nitrostat] 0.4 mg SUBLINGUAL Q5M PRN #25 tab 08/02/15 lisinopriL [Zestril] 20 mg PO BID #60 tab 01/16/18 Apixaban [Eliquis Starter Pack 5 - 10 mg PO DIRECTED 30 Days 03/30/23 (for VTE)] #1 each Allergies Allergy/AdvReac Type Severity Reaction Status Date / Time codeine Allergy makes Verified 03/30/23 11:48 headache worse egg yolk Allergy stomach Verified 03/30/23 11:48 ache atorvastatin calcium AdvReac Severe Abdominal Verified 03/30/23 11:48 [From Lipitor] Pain Review of Systems ROS Statement: Those systems with pertinent positive or pertinent negative responses have been documented in the HPI. ROS Other: All systems not noted in ROS Statement are negative. Past Medical History Past Medical History: Coronary Artery Disease (CAD), GERD/Reflux, Hyperlipidemia, Hypertension, Myocardial Infarction ([place]), Osteoarthritis (OA) Additional Past Medical History / Comment(s): States "coded" during bowel prep for colonoscopy 06/2015, anemia, hiatal hernia, occ irregular heartbeat, gout, hx of low sodium., low iron (received iron transfusions), genital herpes., incisional hernia- states occasional vomiting. per patient "abdominal aortic aneurysm" Last Myocardial Infarction Date:: 2015 History of Any Multi-Drug Resistant Organisms: None Reported Past Surgical History: Adenoidectomy, Appendectomy, Cholecystectomy, Coronary Bypass/CABG, Heart Catheterization With Stent, Tonsillectomy Additional Past Surgical History / Comment(s): total 4 stents, CABG 1994 3 vessel, surgery on rt eye(hit in eyeball with frisbe), Endo capsule, EGD, Colonoscopy Past Anesthesia/Blood Transfusion Reactions: Previous Problems w/ Anesthesia, Blood Transfusion Reaction, Motion Sickness Additional Past Anesthesia/Blood Transfusion Reaction / Comment(s): Hallucinations with last anesthesia, "felt funny' when getting last transfusion. Date of Last Stent Placement:: 2015 Past Psychological History: No Psychological Hx Reported Past Alcohol Use History: Rare Past Drug Use History: None Reported - Past Family History Mother Family Medical History: Coronary Artery Disease (CAD), Hypertension Father Family Medical History: CVA/TIA Brother(s) Family Medical History: No Reported History Sister(s) Family Medical History: Cancer, Thyroid Disorder Additional Family Medical History / Comment(s): THYROID CANCER Son(s) Family Medical History: Cancer Daughter(s) Family Medical History: No Reported History General Exam Limitations: no limitations General appearance: alert, in no apparent distress Head exam: Present: atraumatic, normocephalic, normal inspection Eye exam: Present: normal appearance, EOMI Neck exam: Present: normal inspection, full ROM Respiratory exam: Present: normal lung sounds bilaterally. Absent: respiratory distress, wheezes, rales, rhonchi, stridor Cardiovascular Exam: Present: regular rate, normal rhythm, normal heart sounds. Absent: systolic murmur, diastolic murmur, rubs, gallop, clicks Right Knee exam: Present: normal inspection, full ROM. Absent: tenderness, swelling Lower Leg exam: Present: normal inspection, full ROM. Absent: tenderness, swelling Neurovascular tendon exam: Present: no vascular compromise Neurological exam: Present: alert, oriented X3 Psychiatric exam: Present: normal affect, normal mood Skin exam: Present: warm, dry, intact, normal color. Absent: rash Course Vital Signs 03/30/23 03/30/23 03/30/23 11:48 13:21 17:33 Temperature 98 F 98.1 F 98.1 F Pulse Rate 68 56 L 59 L Respiratory 16 18 18 Rate Blood Pressure 165/85 145/79 165/91 O2 Sat by Pulse 93 L 94 L 99 Oximetry Medical Decision Making - Medical Decision Making Was pt. sent in by a medical professional or institution (, PA, DRILLING CONTRACTOR, urgent care, hospital, or fci...) When possible be specific @ -No Did you speak to anyone other than the patient for history (EMS, parent, family, police, friend...)? What history was obtained from this source @ -No Did you review nursing and triage notes (agree or disagree)? Why? @ -I reviewed and agree with nursing and triage notes Were old charts reviewed (outside hosp., previous admission, EMS record, old EKG, old radiological studies, urgent care reports/EKG's, fci records)? Report findings @ -No old charts were reviewed Differential Diagnosis (chest pain, altered mental status, abdominal pain women, abdominal pain men, vaginal bleeding, weakness, fever, dyspnea, syncope, headache, dizziness, GI bleed, back pain, seizure, CVA, palpatations, mental health, musculoskeletal)? @ -Differential Musculoskeletal Muscular strain, contusion, ligament sprain, fracture, arthritis, septic arthritis, bursitis, cellulitis, muscle spasm, nerve compression, DVT, arterial occlusion, herpes zoster, electrolyte abnormality, tumor.... This is not meant to be in all inclusive list EKG interpreted by me (3pts min.). @ -As above X-rays interpreted by me (1pt min.). @ -None done CT interpreted by me (1pt min.). @ -None done U/S interpreted by me (1pt. min.). @ -Positive for DVT distal femoral vein, partial flow and compression seen What testing was considered but not performed or refused? (CT, X-rays, U/S, labs)? Why? @ -None What meds were considered but not given or refused? Why? @ -None Did you discuss the management of the patient with other professionals (professionals i.e. Dr., PA, DRILLING CONTRACTOR, lab, RT, psych nurse, high school social studies teacher, sugar cane planter, teacher, founder and chief executive officer, casework specialist)? Give summary @ -No Was smoking cessation discussed for >3mins.? @ -No Was critical care preformed (if so, how long)? @ -No Were there social determinants of health that impacted care today? How? (Homelessness, low income, unemployed, alcoholism, drug addiction, transportation, low edu. Level, literacy, decrease access to med. care, shelter, rehab)? @ -No Was there de-escalation of care discussed even if they declined (Discuss DNR or withdrawal of care, Hospice)? DNR status @ -No What co-morbidities impacted this encounter? (DM, HTN, Smoking, COPD, CAD, Cance r, CVA, ARF, Chemo, Hep., AIDS, mental health diagnosis, sleep apnea, morbid obesity)? @ -None Was patient admitted / discharged? Hospital course, mention meds given and route, prescriptions, significant lab abnormalities, going to OR and other pertinent info. @ -67-year-old male presenting with chief complaint of cramping pain behind the right knee that started this morning. No injury or trauma. Patient has had varicose veins on exam, no edema. No reproducible pain. No discoloration. Ultrasound is positive for DVT in the distal femoral vein. Patient is started on eliquis. Follow-up with PCP. Report back to ER with any new or worsening symptoms. Discussed return parameters and answered all questions. Patient conveyed verbal understanding and agreed to the plan. I discussed this case in detail with my attending Dr. Kwong Undiagnosed new problem with uncertain prognosis? @ -No Drug Therapy requiring intensive monitoring for toxicity (Heparin, Nitro, Insulin, Cardizem)? @ -No Were any procedures done? @ -No Diagnosis/symptom? @ -DVT Acute, or Chronic, or Acute on Chronic? @ -Acute Uncomplicated (without systemic symptoms) or Complicated (systemic symptoms)? @ -Uncomplicated Side effects of treatment? @ -No Exacerbation, Progression, or Severe Exacerbation? @ -No Poses a threat to life or bodily function? How? (Chest pain, [place], [place], pneumonia, PE, COPD, DKA, ARF, appy, cholecystitis, CVA, Diverticulitis, Homicidal, Suicidal, threat to staff... and all critical care pts) @ -Without proper care and follow-up DVT has potential to develop into pulmonar y embolism Disposition Clinical Impression: DVT (deep venous thrombosis) Disposition: HOME SELF-CARE Condition: Good Instructions (If sedation given, give patient instructions): Apixaban (By mouth), Deep Vein Thrombosis (ED) Additional Instructions: Follow-up with PCP. Report back to ER with any new or worsening symptoms. Prescriptions: Apixaban [Eliquis Starter Pack (for VTE)] 5 - 10 mg PO DIRECTED 30 Days #1 each Is patient prescribed a controlled substance at d/c from ED?: No Referrals: Alex Borden Jr, DO [Primary Care Provider] - 1-2 days Time of Disposition: 16:46
[2023-03-30 13:35] VITALS: RESP 18; TEMP 98.1
--- NOTE | 2023-03-30 16:17 | US ---
EXAMINATION TYPE: US venous doppler duplex LE RT DATE OF EXAM: 03/30/2023 12:56 PM COMPARISON: US 2012 CLINICAL INDICATION: Male, 67 years old with history of leg pain; Right leg pain x 1 day SIDE PERFORMED: Right TECHNIQUE: The lower extremity deep venous system is examined utilizing real time linear array sonog jeff with graded compression, doppler sonography and color-flow sonography. VESSELS IMAGED: Common Femoral Vein Deep Femoral Vein Greater Saphenous Vein * Femoral Vein Popliteal Vein Small Saphenous Vein * Proximal Calf Veins (* superficial vessels) Right Leg: Positive for DVT distal femoral vein, partial flow and compression seen IMPRESSION: DVT as noted.
[2023-03-30] MEDS ORDERED: APIXABAN 5 MG TAB PO STA (16:46)
[2023-03-30 17:41] VITALS: BP 165/91; PULSE 59
== END 2023-03-30 17:35 | disposition home or self-care (01) ==
LOC: EC 11:47
DX: I82.401 Acute embolism and thrombosis of unspecified deep veins of right lower extremity (principal); I10 Essential (primary) hypertension; I25.10 Atherosclerotic heart disease of native coronary artery without angina pectoris; I25.2 Old myocardial infarction; E78.5 Hyperlipidemia, unspecified; M19.90 Unspecified osteoarthritis, unspecified site; Z79.899 Other long term (current) drug therapy; Z90.49 Acquired absence of other specified parts of digestive tract; Z91.012 Allergy to eggs; Z88.5 Allergy status to narcotic agent; Z88.8 Allergy status to other drugs, medicaments and biological substances
CPT/HCPCS: 99283

== ENCOUNTER → 2024-08-24 | Outpatient (CLI) | payer MEDICARE ==
--- NOTE | 2024-08-24 09:13 | CT ---
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 check fo r aneurysm. TECHNIQUE: CT scan of the head is performed without contrast. CT DLP: 1147 mGycm. Automated Exposure Control for Dose Reduction was Utilized. FINDINGS: There is no acute intracranial hemorrhage or midline shift identified. There is mild diff use ventricular and sulcal prominence redemonstrated. Berry-white matter differentiation is preserved. The globes are intact and the visualized sinuses are clear. IMPRESSION: No acute intracranial hemorrhage or midline shift. No significant change from most recen t prior CT. [facility], , 08/24/2024 9:11 AM
== END | disposition home or self-care (01) ==
LOC: RADCTMAIN 08:41
PROVIDERS: ATTEND Family Medicine
DX: M31.6 Other giant cell arteritis (principal)
CPT/HCPCS: 70450

== ENCOUNTER 2024-12-14 12:00 | Emergency (ER) | payer MEDICARE ==
--- NOTE | 2024-12-14 12:23 | ED ---
General Adult HPI - General Chief complaint: Abdominal Pain Stated complaint: Abd Pain/Nausea Time Seen by Provider: 12/14/24 12:09 Source: patient, family, RN notes reviewed Mode of arrival: wheelchair Limitations: no limitations - History of Present Illness Initial comments: Patient is a 69-year-old male present to the emergency department with concerns with abdominal discomfort. Onset of symptoms was prior to arrival while loading stuff up. Patient does have abdominal hernia with previous repair twice with mesh. Patient states it does stick out on him sometimes. Patient states it was sticking out of him more today. Pain was severe and patient had significant nausea. No vomiting. No constipation or diarrhea. Symptoms have improved and are mild at this time. Patient has history of known abdominal aortic aneurysm. Patient is on blood thinner secondary to history of heart disease. - Related Data Home Medications Medication Instructions Recorded Confirmed allopurinoL [Zyloprim] 100 mg PO DAILY 07/28/15 12/14/24 Ezetimibe [Zetia] 10 mg PO HS 07/06/16 12/14/24 Sennosides [Senna] 8.6 mg PO DAILY 03/27/17 12/14/24 carvediloL [Coreg] 6.25 mg PO BID 07/23/19 12/14/24 Loratadine [Claritin] 10 mg PO DAILY PRN 07/24/19 12/14/24 Rosuvastatin Calcium [Crestor] 40 mg PO HS 07/24/19 12/14/24 Apixaban [Eliquis] 5 mg PO BID 12/14/24 12/14/24 Doxazosin [Cardura] 4 mg PO DAILY 12/14/24 12/14/24 Losartan [Cozaar] 25 mg PO DAILY 12/14/24 12/14/24 Nitroglycerin Sl Tabs [Nitrostat] 0.4 mg SL Q5M PRN 12/14/24 12/14/24 Spironolactone [Aldactone] 25 mg PO DAILY 12/14/24 12/14/24 amLODIPine [Norvasc] 5 mg PO DAILY 12/14/24 12/14/24 Allergies Allergy/AdvReac Type Severity Reaction Status Date / Time codeine Allergy makes Verified 12/14/24 12:51 headache worse egg yolk Allergy stomach Verified 12/14/24 12:51 ache atorvastatin calcium AdvReac Severe Abdominal Verified 12/14/24 12:51 [From Lipitor] Pain dapagliflozin [From Farxiga] AdvReac Dizziness Verified 12/14/24 12:51 sacubitril [From Entresto] AdvReac Dizziness Verified 12/14/24 12:51 valsartan [From Entresto] AdvReac Dizziness Verified 12/14/24 12:51 Review of Systems ROS Statement: Those systems with pertinent positive or pertinent negative responses have been documented in the HPI. ROS Other: All systems not noted in ROS Statement are negative. Constitutional: Denies: fever Eyes: Denies: eye pain ENT: Denies: ear pain Respiratory: Denies: cough, dyspnea Cardiovascular: Denies: chest pain Endocrine: Denies: fatigue Gastrointestinal: Reports: as per HPI, abdominal pain, nausea. Denies: vomiting, diarrhea, constipation Skin: Denies: lesions Neurological: Denies: weakness Past Medical History Past Medical History: Coronary Artery Disease (CAD), GERD/Reflux, Hyperlipidemia, Hypertension, Myocardial Infarction ([place]), Osteoarthritis ([place]) Additional Past Medical History / Comment(s): States "coded" during bowel prep for colonoscopy 06/2015, anemia, hiatal hernia, occ irregular heartbeat, gout, hx of low sodium., low iron (received iron transfusions), genital herpes., incisional hernia- states occasional vomiting. per patient "abdominal aortic aneurysm" Last Myocardial Infarction Date:: 2015 History of Any Multi-Drug Resistant Organisms: None Reported Past Surgical History: Adenoidectomy, Appendectomy, Cholecystectomy, Coronary Bypass/CABG, Heart Catheterization With Stent, Tonsillectomy Additional Past Surgical History / Comment(s): total 4 stents, CABG 1994 3 vessel, surgery on rt eye(hit in eyeball with frisbe), Endo capsule, EGD, Colonoscopy Past Anesthesia/Blood Transfusion Reactions: Previous Problems w/ Anesthesia, Blood Transfusion Reaction, Motion Sickness Additional Past Anesthesia/Blood Transfusion Reaction / Comment(s): Hallucinations with last anesthesia, "felt funny' when getting last transfusion. Date of Last Stent Placement:: 2015 Past Psychological History: No Psychological Hx Reported Past Alcohol Use History: Rare Past Drug Use History: None Reported - Past Family History Mother Family Medical History: Coronary Artery Disease (CAD), Hypertension Father Family Medical History: CVA/TIA Brother(s) Family Medical History: No Reported History Sister(s) Family Medical History: Cancer, Thyroid Disorder Additional Family Medical History / Comment(s): THYROID CANCER Son(s) Family Medical History: Cancer Daughter(s) Family Medical History: No Reported History General Exam Limitations: no limitations General appearance: alert, in no apparent distress Head exam: Present: normocephalic Eye exam: Present: normal appearance Neck exam: Present: normal inspection Respiratory exam: Present: normal lung sounds bilaterally Cardiovascular Exam: Present: regular rate, normal rhythm Expanded Peripheral pulses: 2+: Posterior Tibialis (R), Posterior Tibialis (L) GI/Abdominal exam: Present: soft, hernia (Ventral hernia approximately 7 cm with tenderness.). Absent: pulsatile mass Extremities exam: Present: normal inspection Neurological exam: Present: alert Psychiatric exam: Present: normal affect, normal mood Skin exam: Present: normal color Course Vital Signs 12/14/24 12/14/24 12:05 13:55 Temperature 97.6 F Pulse Rate 50 L 54 L Respiratory 16 18 Rate Blood Pressure 117/66 115/60 O2 Sat by Pulse 100 97 Oximetry EKG Findings - EKG Results: EKG: interpreted by ERMD (Left axis. Nonspecific intraventricular conduction delay. Inferior Q waves.), sinus rhythm, normal ST/T EKG shows: bradycardia Procedures - Procedures Initial comment: Ventral abdominal hernia reduced using manual pressure without complication. Patient tolerated procedure well with only mild discomfort. Medical Decision Making - Medical Decision Making Was pt. sent in by a medical professional or institution (, PA, SUPERVISOR SOLDERING, urgent care, hospital, or correction...) When possible be specific @ -No Did you speak to anyone other than the patient for history (EMS, parent, family, police, friend...)? What history was obtained from this source @ - is present and provides history the patient has had 2 previous repairs of his abdominal wall hernia Did you review nursing and triage notes (agree or disagree)? Why? @ -I reviewed and agree with nursing and triage notes Were old charts reviewed (outside hosp., previous admission, EMS record, old EKG, old radiological studies, urgent care reports/EKG's, correction records)? Report findings @ -No old charts were reviewed Differential Diagnosis (chest pain, altered mental status, abdominal pain women, abdominal pain men, vaginal bleeding, weakness, fever, dyspnea, syncope, headache, dizziness, GI bleed, back pain, seizure, CVA, palpatations, mental health, musculoskeletal)? @ -Differential Abdominal Pain Men: Appendicitis, cholecystitis, diverticulosis, ischemic bowel, pancreatitis, hepat itis, UTI, gastroenteritis, AAA, incarcerated hernia, bowel obstruction, constipation, inflammatory bowel, hepatitis, peptic ulcer disease, splenic infarction, perforated viscus, testicular torsion, this is not meant to be an all-inclusive list EKG interpreted by me (3pts min.). @ -As above X-rays interpreted by me (1pt min.). @ -None done CT interpreted by me (1pt min.). @ -CT scan abdomen pelvis shows abdominal wall hernia. Increasing size of aortic aneurysm, up to 4 cm U/S interpreted by me (1pt. min.). @ -None done What testing was considered but not performed or refused? (CT, X-rays, U/S, labs)? Why? @ -None What meds were considered but not given or refused? Why? @ -None Did you discuss the management of the patient with other professionals (professionals i.e. , PA, SUPERVISOR SOLDERING, lab, RT, psych nurse, social scientist, pipe fitter supervisor, teacher, chief talent officer, case briefer)? Give summary @ -No Was smoking cessation discussed for >3mins.? @ -No Was critical care preformed (if so, how long)? @ -No Were there social determinants of health that impacted care today? How? (Homelessness, low income, unemployed, alcoholism, drug addiction, transportation, low edu. Level, literacy, decrease access to med. care, shelter, rehab)? @ -No Was there de-escalation of care discussed even if they declined (Discuss DNR or withdrawal of care, Hospice)? DNR status @ -No What co-morbidities impacted this encounter? (DM, HTN, Smoking, COPD, CAD, Cancer, CVA, ARF, Chemo, Hep., AIDS, mental health diagnosis, sleep apnea, morbid obesity)? @ -None Was patient admitted / discharged? Hospital course, mention meds given and route, prescriptions, significant lab abnormalities, going to OR and other perti nent info. @ -Patient presents with abdominal pain specifically at the site of his abdominal wall hernia. This is reduced with resolution of symptoms. On reevaluation patient remained symptom-free. Patient gets up without any difficulty. There is some return of abdominal wall hernia is also seen on CT. Patient and family updated regarding this, specifically updated and increased size of aneurysm and need for close follow-up with that as well. They do demonstrate understanding and agreed to this. Undiagnosed new problem with uncertain prognosis? @ -No Drug Therapy requiring intensive monitoring for toxicity (Heparin, Nitro, Insulin, Cardizem)? @ -No Were any procedures done? @ -Reduction of hernia, see above Diagnosis/symptom? @ -Abdominal pain, ventral hernia Acute, or Chronic, or Acute on Chronic? @ -Acute, acute Uncomplicated (without systemic symptoms) or Complicated (systemic symptoms)? @ -Complicated with history of aortic aneurysm Side effects of treatment? @ -No Exacerbation, Progression, or Severe Exacerbation? @ -No Poses a threat to life or bodily function? How? (Chest pain, [place], [place], pneumonia, PE, COPD, DKA, ARF, appy, cholecystitis, CVA, Diverticulitis, Homicidal, Suicidal, threat to staff... and all critical care pts) @ -Threat to bowel function - Lab Data Result diagrams: 12/14/24 12:24 12/14/24 12:24 Lab Results 12/14/24 12/14/24 12/14/24 Range/Units 12:24 12:24 12:24 WBC 9.93 (4.50-10.00) 10*3/uL RBC 4.64 (4.40-5.60) 10*6/uL Hgb 14.6 (13.0-17.0) g/dL Hct 44.2 (39.6-50.0) % MCV 95.3 (80.0-97.0) fL MCH 31.5 (27.0-32.0) pg MCHC 33.0 (32.0-37.0) g/dL Plt Count 230 (140-440) 10*3/uL MPV 10.3 (9.5-12.2) fL Immature Gran % (Auto) 0.3 % Neutrophils % 68.1 % Lymphocytes % 21.0 % Monocytes % 8.4 % Eosinophils % 1.9 % Basophils % 0.3 % Immature Gran # 0.03 (0.00-0.04) 10*3/uL Neutrophils # 6.76 (1.80-7.70) 10*3/uL Lymphocytes # 2.09 (0.90-5.00) 10*3/uL Monocytes # 0.83 (0.20-1.00) 10*3/uL Eosinophils # 0.19 (0.04-0.35) 10*3/uL Basophils # 0.03 (0.00-0.10) 10*3/uL PT 12.7 H (10.0-12.5) sec INR 1.2 H (<1.2) APTT 25.3 (22.0-30.0) sec Sodium 139 (137-145) mmol/L Potassium 4.3 (3.5-5.1) mmol/L Chloride 105 (98-107) mmol/L Carbon Dioxide 22 (22-30) mmol/L Anion Gap 12 mmol/L BUN 12 (9-20) mg/dL Creatinine 0.82 (0.66-1.25) mg/dL Est GFR (CKD-EPI)AfAm >90 (>60 ml/min/1.73 sqM) Est GFR (CKD-EPI)NonAf >90 (>60 ml/min/1.73 sqM) Glucose 123 H (74-99) mg/dL Calcium 9.6 (8.4-10.2) mg/dL Total Bilirubin 0.9 (0.2-1.3) mg/dL AST 51 (17-59) U/L ALT 44 (4-49) U/L Alkaline Phosphatase 51 (38-126) U/L Total Protein 7.2 (6.3-8.2) g/dL Albumin 4.4 (3.5-5.0) g/dL Amylase 45 (30-110) U/L Lipase 66 (23-300) U/L Disposition Clinical Impression: Ventral hernia Disposition: HOME SELF-CARE Condition: Stable Instructions (If sedation given, give patient instructions): Ventral Hernia (ED) Additional Instructions: Please do follow-up with your primary care physician in the next couple of days for recheck. Please also do close follow-up with your vascular doctor, Dr. Hannah as well as surgeon. Return for increased abdominal pain, unable to reduce hernia, vomiting, worsening or changing symptoms or other concerns. Is patient prescribed a controlled substance at d/c from ED?: No Referrals: Alex Borden Jr, DO [Primary Care Provider] - 1-2 days Leno Juares MD [Medical Doctor] - 1-2 days Dilan Krishna MD [STAFF PHYSICIAN] - 1-2 days Time of Disposition: 14:33
[2024-12-14 12:33] LABS: Basophils # (A) 0.03 10*3/uL (0.00-0.10); Basophils % (A) 0.3 %; Eosinophils # (A) 0.19 10*3/uL (0.04-0.35); Eosinophils % (A) 1.9 %; HCT 44.2 % (39.6-50.0); HGB 14.6 g/dL (13.0-17.0); Lymphocytes # (A) 2.09 10*3/uL (0.90-5.00); MCH 31.5 pg (27.0-32.0); MCV 95.3 fL (80.0-97.0); Mean Platelet Volume 10.3 fL (9.5-12.2); Monocytes # (A) 0.83 10*3/uL (0.20-1.00); Monocytes % (A) 8.4 %; Neutrophils # (A) 6.76 10*3/uL (1.80-7.70); Neutrophils % (A) 68.1 %; Platelet Count 230 10*3/uL (140-440); RBC 4.64 10*6/uL (4.40-5.60); RDW 13.2 % (11.5-14.5); WBC 9.93 10*3/uL (4.50-10.00)
[2024-12-14 12:44] LABS: INR 1.2 (<1.2); Partial Thromboplastin Time 25.3 sec (22.0-30.0); Prothrombin Time 12.7 sec (10.0-12.5)
[2024-12-14 12:48] LABS: ALT 44 U/L (4-49); AST 51 U/L (17-59); African American GFR (CKD) >90 (>60 ml/min/1.73 sqM); Albumin 4.4 g/dL (3.5-5.0); Alkaline Phosphatase 51 U/L (38-126); Amylase 45 U/L (30-110); Anion Gap 12 mmol/L; Blood Urea Nitrogen 12 mg/dL (9-20); Calcium 9.6 mg/dL (8.4-10.2); Carbon Dioxide 22 mmol/L (22-30); Chloride 105 mmol/L (98-107); Glucose 123 mg/dL (74-99); Lipase 66 U/L (23-300); Non-African American GFR(CKD) >90 (>60 ml/min/1.73 sqM); Potassium 4.3 mmol/L (3.5-5.1); Sodium 139 mmol/L (137-145); Total Bilirubin 0.9 mg/dL (0.2-1.3); Total Protein 7.2 g/dL (6.3-8.2)
[2024-12-14 14:00] VITALS: PULSE 54
--- NOTE | 2024-12-14 14:06 | CT ---
EXAMINATION TYPE: CT abdomen pelvis w con CT DLP: 1181.5 mGycm, Automated exposure control for dose reduction was used. DATE OF EXAM: 12/14/2024 1:49 PM COMPARISON: CT abdomen pelvis 07/20/2016 CLINICAL INDICATION:Male, 69 years old with history of abdominal pain; Epigastric abdominal pain and nausea. TECHNIQUE: Standard CT of the abdomen and pelvis following the administration of 100 cc of Isovue 3 00 IV contrast material. Coronal and sagittal reformats were performed. FINDINGS: LOWER CHEST: Minimal posterior dependent subsegmental atelectasis is noted. Linear scarring or atelec tasis within the right middle lobe. Moderate coronary arterial calcifications. No pericardial effusio n. Sternotomy wires. ABDOMEN LIVER: Unremarkable GALLBLADDER AND BILE DUCTS: The gallbladder is surgically absent. No biliary ductal dilatation. PANCREAS: Unremarkable. SPLEEN: Unremarkable. ADRENAL GLANDS: Unremarkable. KIDNEYS AND URETERS: No evidence of hydronephrosis or renal calculus. The kidneys enhance symmetrica lly. Right inferior pole subcentimeter cortical cyst. No follow-up recommended. Contrast is demonstra gabriela within both collecting systems on the delayed phase. PELVIS BLADDER: Unremarkable REPRODUCTIVE: Moderate size right hydrocele. ABDOMEN & PELVIS STOMACH AND BOWEL: Stomach is unremarkable. Periampullary duodenal diverticulum. Distal colonic diver ticulosis without evidence for acute diverticulitis. No focal bowel wall thickening or surrounding in flammatory changes identified. The appendix is not identified. Nonobstructing small bile within a rig ht mid abdominal hernia. No evidence of bowel obstruction. PERITONEUM: No evidence of pneumoperitoneum or free fluid. VASCULATURE: Moderate atherosclerotic calcification of the aorta and its branches. Increased size of fusiform mid to distal abdominal aortic aneurysm measuring 4.0 x 3.5 cm, previously measuring up to 3 .1 cm. Slightly increased size of bilateral common iliac artery fusiform aneurysms with the right now measuring up to 2.2 cm and the left measuring up to 2.4 cm. Previously 1.9 cm bilaterally. Increasin g size of saccular left common iliac artery aneurysm with partial thrombosis measuring up to 2.4 cm, previously measured 1.6 cm. Few pelvic phleboliths. MUSCULOSKELETAL: No acute osseous abnormalities. Multilevel anterior osteophytosis of the lower thora cic spine. LYMPH NODES: Stable mildly enlarged 1.5 cm short axis periportal lymph node. Consider benign due to s tability from 2017. No other lymphadenopathy identified. SOFT TISSUE/ABDOMINAL WALL: Right mid abdominal hernia containing nonobstructed small bowel and mesen teric vessels. The defect measures up to 3.1 cm in diameter. The hernia sac measures up to 9.3 center s in diameter. There is new from prior CT in 2017. IMPRESSION: 1. No CT evidence for acute abdominal/pelvic process. 2. 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 Recommend vascular surgery consultation. 3. Development of right anterior mid abdomen wall hernia containing nonobstructing small bowel and me senteric vessels. 4. Distal colonic diverticulosis without evidence for acute diverticulitis. [facility], , 12/14/2024 2:03 PM
[2024-12-14 15:14] VITALS: BP 117/72; RESP 20; TEMP 98.2
== END 2024-12-14 15:25 | disposition home or self-care (01) ==
LOC: EC 12:00
DX: K43.9 Ventral hernia without obstruction or gangrene (principal); Z88.5 Allergy status to narcotic agent; Z91.012 Allergy to eggs; Z88.8 Allergy status to other drugs, medicaments and biological substances
CPT/HCPCS: 36415; 80053; 82150; 83690; 85025; 85610; 85730; 74177; 99284; Q9967